=== PATIENT | female | born 1990 | race Asian ===

== ENCOUNTER 2016-11-04 19:00 | Emergency (ER) | payer MEDICAID, OTHER ==
[2016-11-04] MEDS ORDERED: IBUPROFEN 800 MG TABLET PO STA (19:20)
[2016-11-04] MEDS ORDERED: DEXAMETHASONE 10 MG/ML VIAL PO STA (19:20)
--- NOTE | 2016-11-04 19:26 | ED Physician Documentation ---
PD HPI URI - Stated complaint Stated Complaint: FEVER/TROY - Chief complaint Chief Complaint: Heent - History obtained from History obtained from: Patient, Family - History of Present Illness Timing - onset: How many days ago (2) Timing duration: Days (2) Timing details: Gradual onset Pain level max: 5 Pain level now: 5 Associated symptoms: Fever (subjective), Sore throat. No: Ear pain, Rhinorrhea Contributing factors: Sick contact Improves by: Rest, Medication (hydrocodone) Worsened by: Activity Recently seen: Surgery (fractured tooth pulled yesterday, fever and sorethroat were before the surgery) - Additional information Additional information: currently on amoxicillin Review of Systems Constitutional: reports: Fever (subjective) Nose: denies: Rhinorrhea / runny nose, Congestion Throat: reports: Sore throat Respiratory: denies: Cough GI: denies: Abdominal Pain, Vomiting, Diarrhea : denies: Now EGA Skin: denies: Rash Musculoskeletal: denies: Neck pain, Back pain Neurologic: denies: Headache PD PAST MEDICAL HISTORY - Past Medical History Past Medical History: No - Past Surgical History Past Surgical History: No - Present Medications Home Medications: Ambulatory Orders Medication Instructions Recorded Confirmed Amoxicillin 125 mg PO TID 05/08/16 05/08/16 Hydrocodone/Acetaminophen [Vicodin 1 tab PO .FREQ 11/04/16 11/04/16 5-300 mg Tablet] - Allergies Allergies/Adverse Reactions: Allergies Allergy/AdvReac Type Severity Reaction Status Date / Time No Known Drug Allergies Allergy Verified 11/04/16 19:05 - Social History Does the pt smoke?: No Smoking Status: Never smoker Does the pt drink ETOH?: Yes Does the pt have substance abuse?: No - Immunizations Immunizations are current?: Yes PD ED PE NORMAL - Vitals Vital signs reviewed: Yes - General General: Alert and oriented X 3, No acute distress - HEENT HEENT: PERRL, Ears normal, Moist mucous membranes, Dentition benign, Other ( mild posterior oropharyngeal erythema without tonsillar exudates, uvula midline) - Neck Neck: Supple, no meningeal sign, No adenopathy - Cardiac Cardiac: RRR - Respiratory Respiratory: No respiratory distress, Clear bilaterally - Derm Derm: Warm and dry - Neuro Neuro: Alert and oriented X 3 - Psych Psych: Normal mood, Normal affect Results - Vitals Vitals: Vital Signs - 24 hr 11/04/16 11/04/16 19:04 19:32 Temperature 36.6 C Heart Rate 110 H 109 H Respiratory 18 16 Rate Blood Pressure 136/48 H 118/68 O2 Saturation 100 99 Oxygen O2 Source Room air PD MEDICAL DECISION MAKING - ED course Complexity details: considered differential, d/w patient ED course: Patient presents to the emergency department with a sore throat for the past 2 days. Had a dental extraction yesterday. Is currently on amoxicillin. No fever here. Possible that she has strep pharyngitis, but as she is currently on the antibiotic that would be prescribed for strep pharyngitis, will not test for this. Given dexamethasone and Motrin. Will continue supportive care and follow-up with her doctor. No trismus. No evidence of drainable abscess. Extraction site appears clean. Patient and family counseled regarding signs and symptoms for which I believe and urgent re-evaluation would be necessary. Patient with good understanding of and agreement to plan and is comfortable going home at this time This document was made in part using voice recognition software. While efforts are made to proofread this document, sound alike and grammatical errors may occur. Departure - Departure Disposition: 01 Home, Self Care Clinical Impression: Pharyngitis Qualifiers: Pharyngitis/tonsillitis etiology: unspecified etiology Qualified Code(s): J02.9 - Acute pharyngitis, unspecified Condition: Good Instructions: ED Strep Pharyngitis Poss Follow-Up: Julia Wilkins MD [Primary Care Provider] - Within 1 week Comments: Return if you worsen. Continue the amoxicillin at home. Drink plenty of fluids and rest. Discharge Date/Time: 11/04/16 19:33
[2016-11-04] MEDS ORDERED: IBUPROFEN 800 MG TABLET PO ONE (19:27)
[2016-11-04] MEDS ORDERED: CHERRY SYRUP 10 ML UDC PO ONE (19:27)
[2016-11-04] MEDS ORDERED: DEXAMETHASONE 10 MG/ML VIAL ONE (19:27)
[2016-11-04 19:39] VITALS: BP 118/68
== END 2016-11-04 19:33 | disposition home or self-care (01) ==
LOC: ED 19:00
DX: J02.9 Acute pharyngitis, unspecified (principal); Z98.818 Other dental procedure status
CPT/HCPCS: 99283; A9270

== ENCOUNTER 2017-10-02 14:11 | Emergency (ER) | payer OTHER ==
--- NOTE | 2017-10-02 14:30 | ED Physician Documentation ---
History of Present Illness - Stated complaint Stated Complaint: VOMITING/DIZZY - Chief complaint Chief Complaint: General - History obtained from History obtained from: Patient, Family () - History of Present Illness Timing: Today (She has been drinking heavily the last few days, last drink was last night. Today she was getting up to go to the bathroom and felt shortness of breath and some chest heaviness. There is no associated abdominal pain. No hemoptysis, calf swelling, exogenous estrogens or recent travel. No cough.) Review of Systems Constitutional: denies: Fever, Chills Throat: denies: Sore throat Cardiac: reports: Chest pain / pressure. denies: Palpitations, Pedal edema, Calf pain Respiratory: reports: Dyspnea. 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 : None HEENT: None Psych: None Musculoskeletal: None Derm: None - Past Surgical History Past Surgical History: No - Allergies Allergies/Adverse Reactions: Allergies Allergy/AdvReac Type Severity Reaction Status Date / Time No Known Drug Allergies Allergy Verified 10/02/17 14:17 - Social History Does the pt smoke?: No Smoking Status: Never smoker Does the pt drink ETOH?: Yes Does the pt have substance abuse?: No - Family History Family history: reports: Non contributory - Immunizations Immunizations are current?: No - POLST Patient has POLST: No PD ED PE NORMAL - Vitals Vital signs reviewed: Yes - General General: Alert and oriented X 3, Other (Slightly anxious with fine but mild tremor) - HEENT HEENT: PERRL, EOMI - Neck Neck: Supple, no meningeal sign, No bony TTP - Cardiac Cardiac: RRR, No murmur - Respiratory Respiratory: No respiratory distress, Clear bilaterally - Abdomen Abdomen: Normal bowel sounds, Soft, Non tender - Back Back: No CVA TTP, No spinal TTP - Derm Derm: Normal color, Warm and dry - Extremities Extremities: No edema, No calf tenderness / cord - Neuro Neuro: Alert and oriented X 3, Normal speech Eye Opening: Spontaneous Motor: Obeys Commands Verbal: Oriented GCS Score: 15 - Psych Psych: Normal mood, Normal affect Results - Vitals Vitals: Vital Signs - 24 hr 10/02/17 14:13 Temperature 36 C L Heart Rate 68 Respiratory 14 Rate Blood Pressure 147/78 H O2 Saturation 100 Oxygen O2 Source Room air - EKG (time done) 1534 Rate: Rate (enter#) (73) Rhythm: NSR [place]: Normal Intervals: Other (short ID, Long QT) Ischemia: Normal ST segments. No: ST elevation c/w ischemia, ST elevation c/w repol Computer interpretation: Agree with computer - Labs Labs: Laboratory Tests 10/02/17 10/02/17 10/02/17 14:50 14:56 15:05 WBC 11.2 H RBC 5.12 Hgb 14.2 Hct 41.7 MCV 81.5 MCH 27.8 MCHC 34.1 RDW 12.9 Plt Count 298 MPV 6.5 L Neut # 9.8 H Lymph # 1.0 L Caroline # 0.4 Eos # 0.0 Baso # 0.0 Absolute Nucleated RBC 0.01 Nucleated RBC % 0.0 Sodium 133 L Potassium 3.3 L Chloride 98 L Carbon Dioxide 21 Anion Gap 14.0 H BUN 11 Creatinine 0.7 Estimated GFR (MDRD) 100 Glucose 113 H Calcium 9.6 Total Bilirubin 0.9 AST 34 ALT 27 Alkaline Phosphatase 55 Total Protein 8.7 H Albumin 4.9 Globulin 3.8 Albumin/Globulin Ratio 1.3 Lipase 13 L Urine Color LT RED Urine Clarity HAZY Urine pH 7.5 Ur Specific Sweet 1.015 Urine Protein TRACE Urine Glucose (UA) NEGATIVE Urine Ketones 40 H Urine Occult Blood LARGE H Urine Nitrite NEGATIVE Urine Bilirubin NEGATIVE Urine Urobilinogen 0.2 (NORMAL) Ur Leukocyte Esterase TRACE H Urine RBC TNTC H Urine WBC 4-5 Ur Squamous Epith Cells MOD Squamous H Urine Bacteria Rare Ur Microscopic Review INDICATED Urine Culture Comments NOT INDICATED Urine HCG, Qual NEGATIVE PD MEDICAL DECISION MAKING - ED course ED course: I considered pulmonary embolism in this patient. Clinically the pretest probability of pulmonary embolism is less than 15%. I applied to the PERC rules as follows: The patient's age is under 50, heart rate less than 100, oxygen saturation greater than 94%, the patient does not have a history of DVT or PE. Patient has no recent trauma or surgery. The patient has no hemoptysis. The patient is not on exogenous estrogens. The patient does not have clinical signs suggesting DVT. As such the patient ruled out for pulmonary embolism by PERC criteria. It seems that her symptoms may be from alcoholic gastritis or dehydration or some of both. She is feeling a little better after IV fluids and Ativan but still having persistent chest pain which resolved after Toradol. She was advised to take it easy and rest for the rest of the day and avoid alcohol. Departure - Departure Disposition: Home, Self Care Clinical Impression: Dehydration Chest pain Qualifiers: Chest pain type: unspecified Qualified Code(s): R07.9 - Chest pain, unspecified Condition: Good Record reviewed to determine appropriate education?: Yes Instructions: ED Chest Pain Atypical Unkn Cause Comments: Call your doctor to arrange a follow-up appointment, make the next available appointment. In the interim, return anytime if worse or if new symptoms develop. Your blood pressure was elevated today on check into the emergency department. This does not mean that you have hypertension, it is a common phenomenon to come to the emergency department and have elevated blood pressure. I recommend that you see your primary care physician within the week to have it rechecked when you are feeling better.
[2017-10-02] MEDS ORDERED: LORazepam 2 MG/ML VIAL IVP STA (14:32)
[2017-10-02] MEDS ORDERED: SODIUM CHLORIDE 0.9% 1,000 ML IV ONE (14:34)
[2017-10-02 15:03] LABS: BASOPHILS % (AUTO) 0.3 %; EOSINOPHILS % (AUTO) 0.3 %; HGB - HEMOGLOBIN 14.2 g/dL (12.0-16.0); LYMPHOCYTES % (AUTO) 8.9 %; MEAN CORPUSCULAR HEMOGLOBIN 27.8 pg (27.0-31.0); MEAN CORPUSCULAR HGB CONC 34.1 g/dL (32.0-36.0); MEAN CORPUSCULAR VOLUME 81.5 fL (81.0-99.0); MEAN PLATELET VOLUME 6.5 fL (7.9-10.8); MONOCYTES # (AUTO) 0.4 10^3/uL (0.0-1.0); MONOCYTES % (AUTO) 3.2 %; NEUTROPHILS # (AUTO) 9.8 10^3/uL (1.5-6.6); NEUTROPHILS % (AUTO) 87.3 %; PLT - PLATELET COUNT 298 10^3/uL (130-450); RED BLOOD COUNT 5.12 10^6/uL (4.20-5.40); RED CELL DISTRIBUTION WIDTH 12.9 % (12.0-15.0); WHITE BLOOD COUNT 11.2 x10^3/uL (4.8-10.8)
[2017-10-02 15:13] LABS: BILIRUBIN,URINE NEGATIVE (NEGATIVE); GLUCOSE, URINE (UA) NEGATIVE (NEGATIVE); KETONES,URINE (UA) 40 mg/dL (NEGATIVE); LEUKOCYTE ESTERASE, URINE TRACE (NEGATIVE); NITRITE,URINE NEGATIVE (NEGATIVE); OCCULT BLOOD,URINE LARGE (NEGATIVE); PH,URINE 7.5 PH (5.0-7.5); PROTEIN,URINE TRACE mg/dL (NEGATIVE); UROBILINOGEN,URINE 0.2 (NORMAL) E.U./dL (NORMAL)
[2017-10-02 15:14] LABS: CLARITY,URINE HAZY (CLEAR)
[2017-10-02 15:16] LABS: ALBUMIN 4.9 g/dL (3.2-5.5); ALBUMIN/GLOBULIN RATIO 1.3 (1.0-2.2); BILIRUBIN,TOTAL 0.9 mg/dL (0.2-1.0); CALCIUM 9.6 mg/dL (8.5-10.3); CREATININE 0.7 mg/dL (0.4-1.0); TOTAL PROTEIN 8.7 g/dL (6.7-8.2)
[2017-10-02 15:16] LABS: HCG UR QUAL NEGATIVE
[2017-10-02 15:20] LABS: BACTERIA,URINE Rare /HPF (None Seen); RBC,URINE TNTC /HPF (0-5); SQUAMOUS EPITHELIAL CELL,UR MOD Squamous (<= Few)
--- NOTE | 2017-10-02 15:28 | XRAY Preliminary Report ---
Exam: XR CHEST 2 VIEW X-RAY IMPRESSION: No focal lung consolidation or pleural effusions. [facility] SITE ID: [id number]
--- NOTE | 2017-10-02 15:29 | XRAY Report ---
EXAM: CHEST RADIOGRAPHY EXAM DATE: 10/02/2017 03:15 PM. CLINICAL HISTORY: Dyspnea. COMPARISON: 11/21/2009. TECHNIQUE: 2 views. FINDINGS: Lungs/Pleura: No focal lung consolidation. No pleural effusion. No pneumothorax. Mediastinum: Cardiac silhouette size appears normal. Other: None. IMPRESSION: No focal lung consolidation or pleural effusions. [facility] Referring Provider Line: [phone] SITE ID: [id number]
[2017-10-02] MEDS ORDERED: MAGNESIUM SULFATE 2 GRAM 2 GM/50 ML BAG IV ONE (15:38)
[2017-10-02] MEDS ORDERED: KETOROLAC 60 MG/2 ML VIAL IVP STA (15:38)
[2017-10-02] MEDS ORDERED: POTASSIUM BICARB 25 MEQ TABLET PO STA (15:39)
[2017-10-02 16:47] VITALS: BP 130/69
[2017-10-02] MEDS ORDERED: ONDANSETRON ODT 4 MG Prepack 2 TL STA (16:52)
[2017-10-02] MEDS ORDERED: ONDANSETRON 4 MG/2 ML VIAL IVP STA (16:52)
== END 2017-10-02 17:07 | disposition home or self-care (01) ==
LOC: ED 14:11
DX: E86.0 Dehydration (principal); R07.9 Chest pain, unspecified; R03.0 Elevated blood-pressure reading, without diagnosis of hypertension
CPT/HCPCS: 36415; 71046; 80053; 81001; 81025; 83690; 85025; 93005; 96361; 96365; 96375; 99283; 99284; A9270; J2060; 81003; 87086

== ENCOUNTER 2017-10-04 01:24 | Emergency (ER) | payer OTHER ==
--- NOTE | 2017-10-04 03:30 | ED Physician Documentation ---
PD HPI HEADACHE - Stated complaint Stated Complaint: HEADACHE/CP - Chief complaint Chief Complaint: Cardiac - History obtained from History obtained from: Patient - History of Present Illness Timing - onset: Today Timing - onset during: Rest Timing - details: Gradual onset Worst headache ever?: Worst headache ever? Location: Back, Left Quality: Throbbing, Aching Associated symptoms: No: Fever, Stiff neck, Nausea, Vomiting, Weakness, Numbness , Syncope, Seizure, Eye pain, Vision changes Improved by: Other (no ameliorating factors) Worsened by: Other (no exacerbating factors) Recently seen: Clinic, Emergency Dept - Additional information Additional information: T+R 2 days ago from this ED for chest pain after unremarkable w/u. She was seen by PMD earlier today for f/u, no rx nor specific recommendations (suspected diagnosis is costochondritis). She presents at this time c/o headache, left- sided parieto-occipital, since this afternoon Review of Systems Constitutional: denies: Fever, Chills, Sweats Eyes: reports: Reviewed and negative Ears: reports: Reviewed and negative Nose: reports: Reviewed and negative Cardiac: reports: Chest pain / pressure. denies: Palpitations, Pedal edema, Calf pain Respiratory: reports: Reviewed and negative Musculoskeletal: denies: Neck pain, Back pain Neurologic: reports: Headache. 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 : None HEENT: None Psych: None Musculoskeletal: None Derm: None - Past Surgical History Past Surgical History: No - Allergies Allergies/Adverse Reactions: Allergies Allergy/AdvReac Type Severity Reaction Status Date / Time No Known Drug Allergies Allergy Verified 10/04/17 01:43 - Social History Does the pt smoke?: No Smoking Status: Never smoker Does the pt drink ETOH?: Yes Does the pt have substance abuse?: No - Immunizations Immunizations are current?: No - POLST Patient has POLST: No PD ED PE NORMAL - Vitals Vital signs reviewed: Yes - General General: Alert and oriented X 3, No acute distress, Well developed/nourished - HEENT HEENT: Atraumatic, PERRL, EOMI, Moist mucous membranes - Neck Neck: Supple, no meningeal sign - Cardiac Cardiac: RRR, No murmur - Respiratory Respiratory: No respiratory distress, Clear bilaterally - Abdomen Abdomen: Soft, Non tender - Neuro Neuro: Alert and oriented 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, 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, No motor deficit, No sensory deficit, Normal speech Eye Opening: Spontaneous Motor: Obeys Commands Verbal: Oriented GCS Score: 15 Results - Vitals Vitals: Vital Signs - 24 hr 10/04/17 10/04/17 10/04/17 01:40 02:14 03:18 Temperature 36.8 C Heart Rate 77 66 68 Respiratory 17 20 16 Rate Blood Pressure 125/57 L 115/71 106/65 Blood Pressure 115/71 [Left] O2 Saturation 100 100 97 10/04/17 05:38 Temperature Heart Rate 63 Respiratory 16 Rate Blood Pressure 108/62 Blood Pressure [Left] O2 Saturation 100 Oxygen O2 Source Room air - Rads (name of study) CT head Radiology: Prelim report reviewed, See rad report PD MEDICAL DECISION MAKING - ED course Complexity details: reviewed results, re-evaluated patient, considered differential, d/w patient Departure - Departure Disposition: 01 Home, Self Care Clinical Impression: Headache Condition: Good Instructions: ED Cephalgia Unspecified Follow-Up: Julia Wilkins MD [Primary Care Provider] - Within 1 week Discharge Date/Time: 10/04/17 05:40
[2017-10-04] MEDS ORDERED: ACETAMINOPHEN 325 MG TABLET PO STA (03:53)
--- NOTE | 2017-10-04 04:49 | CT Report ---
EXAM: CT HEAD EXAM DATE: 10/04/2017 04:12 AM. CLINICAL HISTORY: Headache COMPARISON: None. TECHNIQUE: Multiaxial CT images were obtained from the foramen magnum to the vertex. Reformats: Coron al. IV contrast: None. In accordance with CT protocol optimization, one or more of the following dose reduction techniques w ere utilized for this exam: automated exposure control, adjustment of mA and/or KV based on patient s ize, or use of iterative reconstructive technique. FINDINGS: Parenchyma: No intraparenchymal hemorrhage. No evidence of mass, midline shift, or CT findings of inf arction. Marmolejo-white differentiation is distinct. Extraaxial Spaces: Normal for age. No subdural or epidural collections identified. Ventricles: Normal in size and position. Sinuses and Orbits: Imaged paranasal sinuses, orbits, and mastoids show no significant abnormality. Bones: No evidence of fracture or calvarial defect. Other: None. IMPRESSION: Normal head CT. [facility] Referring Provider Line: [phone] SITE ID: [id number]
[2017-10-04 05:38] VITALS: BP 108/62
== END 2017-10-04 05:40 | disposition home or self-care (01) ==
LOC: ED 01:24
DX: R51 Headache (principal); R07.9 Chest pain, unspecified
CPT/HCPCS: 70450; 99283; A9270; 93005

== ENCOUNTER 2017-10-05 23:49 | Emergency (ER) | payer OTHER ==
[2017-10-05 23:56] VITALS: BP 131/72
--- NOTE | 2017-10-06 00:16 | ED Physician Documentation ---
History of Present Illness - Stated complaint Stated Complaint: MED REACTION - Chief complaint Chief Complaint: General - History obtained from History obtained from: Patient, Family - History of Present Illness Timing: Today - Additonal information Additional information: Patient is a 27 year old female who was recently diagnosed with GERD who is presenting to the emergency department for possible medication reaction. Patient states that she was started on protonix and ranitidine for GERD by her pcp. Patient stated that after taking her meds today she noticed right sided neck pain, patient thought it could be an allergic reaction. Patient denies any rash, puritis, wheezing or swelling. Review of Systems Constitutional: denies: Fever, Chills Eyes: denies: Loss of vision, Decreased vision Ears: reports: Ear pain Nose: denies: Rhinorrhea / runny nose, Congestion Throat: denies: Sore throat Cardiac: reports: Chest pain / pressure Respiratory: denies: Dyspnea, Cough GI: reports: Abdominal Pain : denies: Dysuria, Frequency Skin: denies: Rash, Lesions Musculoskeletal: reports: Neck pain Neurologic: reports: Headache. 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 HEENT: None Psych: None Musculoskeletal: None Derm: None - Past Surgical History Past Surgical History: No - Present Medications Home Medications: Ambulatory Orders Medication Instructions Recorded Confirmed Albuterol 10/05/17 - Allergies Allergies/Adverse Reactions: Allergies Allergy/AdvReac Type Severity Reaction Status Date / Time No Known Drug Allergies Allergy Verified 10/05/17 23:56 - Social History Does the pt smoke?: No Smoking Status: Never smoker Does the pt drink ETOH?: Yes Does the pt have substance abuse?: No - Immunizations Immunizations are current?: No - POLST Patient has POLST: No PD ED PE NORMAL - General General: Alert and oriented X 3, No acute distress - HEENT HEENT: Atraumatic, Ears normal, Moist mucous membranes - Neck Neck: Supple, no meningeal sign - Cardiac Cardiac: RRR - Respiratory Respiratory: No respiratory distress, Clear bilaterally - Abdomen Abdomen: Soft, Non distended - Derm Derm: Normal color, No rash - Extremities Extremities: No deformity - Neuro Neuro: Alert and oriented X 3, No motor deficit, Normal speech Eye Opening: Spontaneous Results - Vitals Vitals: Vital Signs - 24 hr 10/05/17 23:54 Temperature 36.4 C L Heart Rate 71 Respiratory 15 Rate Blood Pressure 131/72 H O2 Saturation 100 Oxygen O2 Source Room air PD MEDICAL DECISION MAKING - ED course Complexity details: reviewed old records, reviewed results, re-evaluated patient , considered differential, d/w patient, d/w family ED course: Patient was seen and examined at bedside. Patient was well appearing and in no acute distress. A lengthy discussion was had with the patient and family. there was no sign of systemic allergic reaction. Patient required no further work up and was stable for discharge with outpatient follow up. Departure - Departure Disposition: 01 Home, Self Care Clinical Impression: Generalized muscle ache Condition: Good Instructions: ED Neck Back Pain General Follow-Up: Julia Wilkins MD [Primary Care Provider] - As Needed Comments: Your symptoms tonight are unlikely secondary to drug reaction. there is no systemic redness or swelling and it is likely an incidental findings. You should probably take only one of the medications daily and you can take maalox or tums for breakthrough pain. You should avoid acidic, spicey foods. You should eat small meals and don't eat before lying down. You can take tylenol for pain, and occasional benadryl for trouble sleeping. You should follow up with your doctor, and may return to the emergency department at any time for new , worsening or uncontrollable symptoms. Discharge Date/Time: 10/06/17 00:20
== END 2017-10-06 00:20 | disposition home or self-care (01) ==
LOC: ED 23:49
DX: M79.1 Myalgia (principal); K21.9 Gastro-esophageal reflux disease without esophagitis
CPT/HCPCS: 99282

== ENCOUNTER 2017-10-25 08:00 | Outpatient (CLI) | payer OTHER ==
[2017-10-25 13:54] LABS: THYROID STIMULATING HORMONE 1.4 uIU/mL (0.34-5.60)
[2017-10-25 13:56] LABS: FREE T4 (FREE THYROXINE) 0.9 ng/dL (0.58-1.64)
== END 2017-10-25 08:01 ==
LOC: LAB.WCP 08:00
PROVIDERS: ATTEND Family Medicine
DX: E04.9 Nontoxic goiter, unspecified (principal)
CPT/HCPCS: 36415; 84439; 84443; 84481

== ENCOUNTER 2017-10-27 10:31 | Outpatient (CLI) | payer OTHER ==
[2017-10-31 19:26] LABS: ANA SCREEN NEGATIVE (NEGATIVE)
== END 2017-10-27 10:32 | disposition home or self-care (01) ==
LOC: LAB.WCP 10:31
PROVIDERS: ATTEND Family Medicine
DX: I73.01 Raynaud's syndrome with gangrene (principal)
CPT/HCPCS: 36415; 85651; 86038

== ENCOUNTER 2017-11-02 15:32 | Outpatient (CLI) | payer OTHER ==
--- NOTE | 2017-11-02 17:28 | Ultrasound Report ---
THYROID ULTRASOUND: 11/02/2017 CLINICAL INDICATION: Enlarged thyroid. TECHNIQUE: Real-time scanning was performed with telesales representative static images obtained. FINDINGS: The right lobe measures 4.9 x 1.4 x 1.4 cm, and the left lobe measures 4.6 x 1.5 x 1.2 cm. The isthmus measures 3 mm. No adenopathy is seen. IMPRESSION: NORMAL THYROID ULTRASOUND. TD: 11/02/2017 17:27
== END 2017-11-02 15:33 | disposition home or self-care (01) ==
LOC: DI 15:32
PROVIDERS: ATTEND Family Medicine
DX: E04.9 Nontoxic goiter, unspecified (principal)
CPT/HCPCS: 76536

== ENCOUNTER 2018-01-07 10:06 | Outpatient (CLI) | payer OTHER ==
[2018-01-07 10:17] LABS: BASOPHILS % (AUTO) 0.5 %; EOSINOPHILS # (AUTO) 0.1 10^3/uL (0.0-0.7); EOSINOPHILS % (AUTO) 1.9 %; LYMPHOCYTES # (AUTO) 1.8 10^3/uL (1.5-3.5); MEAN CORPUSCULAR HEMOGLOBIN 28.4 pg (27.0-31.0); MEAN CORPUSCULAR HGB CONC 34.3 g/dL (32.0-36.0); MEAN CORPUSCULAR VOLUME 82.8 fL (81.0-99.0); MEAN PLATELET VOLUME 7.1 fL (7.9-10.8); MONOCYTES # (AUTO) 0.3 10^3/uL (0.0-1.0); MONOCYTES % (AUTO) 4.8 %; NEUTROPHILS # (AUTO) 4.5 10^3/uL (1.5-6.6); NEUTROPHILS % (AUTO) 66.8 %; PLT - PLATELET COUNT 216 10^3/uL (130-450); RED BLOOD COUNT 4.94 10^6/uL (4.20-5.40); RED CELL DISTRIBUTION WIDTH 12.9 % (12.0-15.0); WHITE BLOOD COUNT 6.8 x10^3/uL (4.8-10.8)
[2018-01-07 10:32] LABS: ALBUMIN 4.2 g/dL (3.2-5.5); ALBUMIN/GLOBULIN RATIO 1.1 (1.0-2.2); BILIRUBIN,TOTAL 0.5 mg/dL (0.2-1.0); CALCIUM 8.9 mg/dL (8.5-10.3); CREATININE 0.7 mg/dL (0.4-1.0); TOTAL PROTEIN 7.9 g/dL (6.7-8.2)
[2018-01-07 10:38] LABS: HB2 TOTAL 15.7 g/dL; HEMOGLOBIN A1C 0.5 g/dL; HEMOGLOBIN A1C % 5.1 % (4.6-6.2)
== END 2018-01-07 10:07 | disposition home or self-care (01) ==
LOC: LAB 10:06
PROVIDERS: ATTEND Physician Assistant
DX: Z00.00 Encounter for general adult medical examination without abnormal findings (principal)
CPT/HCPCS: 36415; 80053; 83036; 84443; 85025

== ENCOUNTER 2018-06-21 17:21 | Outpatient (CLI) | payer OTHER ==
--- NOTE | 2018-06-22 05:58 | XRAY Report ---
Reason: CHEST WALL PAIN Procedure Date: 06/21/2018 Accession Number: [id number] / [id number] Procedure: XR - Chest 2 View X-Ray CPT Code: 03665 FULL RESULT: EXAM: CHEST RADIOGRAPHY EXAM DATE: 06/21/2018 06:07 PM. CLINICAL HISTORY: CHEST WALL PAIN. COMPARISON: CHEST 2 VIEW 10/02/2017 2:35 PM. TECHNIQUE: 2 views. FINDINGS: Lungs/Pleura: No focal opacities evident. No pleural effusion. No pneumothorax. Normal volumes. Mediastinum: Heart and mediastinal contours are unremarkable. Other: None. IMPRESSION: Stable normal appearance of the chest. [facility]
== END 2018-06-21 17:22 | disposition home or self-care (01) ==
LOC: DI 17:21
PROVIDERS: ATTEND Family Medicine
DX: R07.89 Other chest pain (principal)
CPT/HCPCS: 71046

== ENCOUNTER 2018-09-18 06:25 | Emergency (ER) | payer OTHER ==
[2018-09-18] MEDS ORDERED: DEXAMETHASONE 10 MG/ML VIAL PO STA (07:24)
--- NOTE | 2018-09-18 07:27 | ED Physician Documentation ---
PD HPI URI - Stated complaint Stated Complaint: COUGH/FEVER - Chief complaint Chief Complaint: Resp - History obtained from History obtained from: Patient, Family - History of Present Illness Timing - onset: How many days ago (4) Timing duration: Days (4) Timing details: Gradual onset, Still present Associated symptoms: Fever, Nasal congestion, Rhinorrhea, Productive cough, Chest pain Contributing factors: Sick contact Improves by: Rest, Medication Similar symptoms before: Has not had sx before Recently seen: Not recently seen - Additional information Additional information: 28-year-old female previously well has developed a cough congestion and fever beginning about 4 days ago. She is coughing up yellow-green phlegm continues to have symptoms on day 4 she is now come to the emergency department for evaluation. She does state that this all started after she was using some cleaning supplies without respiratory protection.She does have an inhaler at home she does not feel that she needs to use it. Review of Systems Constitutional: reports: Fever, Chills, Myalgias Eyes: denies: Decreased vision Ears: denies: Ear pain Nose: reports: Rhinorrhea / runny nose, Congestion Throat: reports: Sore throat Cardiac: reports: Chest pain / pressure. denies: Palpitations Respiratory: reports: Dyspnea, Cough GI: reports: Diarrhea. denies: Abdominal Pain, Nausea, Vomiting : denies: Dysuria, Frequency PD PAST MEDICAL HISTORY - Past Medical History Past Medical History: No Cardiovascular: None Respiratory: Asthma Endocrine/Autoimmune: None GI: None ARCHEOLOGIST CLASSICAL: None : None HEENT: None Psych: None Musculoskeletal: None Derm: None - Past Surgical History Past Surgical History: No - Present Medications Home Medications: Ambulatory Orders Medication Instructions Recorded Confirmed No Known Home Medications 09/18/18 09/18/18 - Allergies Allergies/Adverse Reactions: Allergies Allergy/AdvReac Type Severity Reaction Status Date / Time No Known Drug Allergies Allergy Verified 09/18/18 06:41 - Social History Does the pt smoke?: No Smoking Status: Never smoker Does the pt drink ETOH?: Yes Does the pt have substance abuse?: No - Immunizations Immunizations are current?: No - POLST Patient has POLST: No PD ED PE NORMAL - Vitals Vital signs reviewed: Yes (normal ) - General General: Alert and oriented X 3, No acute distress, Well developed/nourished - HEENT HEENT: Atraumatic, PERRL, EOMI, Ears normal, Moist mucous membranes, Pharynx benign, Dentition benign - Neck Neck: Supple, no meningeal sign, No bony TTP - Cardiac Cardiac: RRR, No murmur - Respiratory Respiratory: No respiratory distress, Other (diminished breath sounds bilat) - Abdomen Abdomen: Soft, Non tender - Back Back: No CVA TTP, No spinal TTP - Derm Derm: Normal color, Warm and dry, No rash - Extremities Extremities: No deformity, No edema - Neuro Neuro: Alert and oriented X 3, harness inspector 2-12 intact, No motor deficit, No sensory deficit, Normal speech Eye Opening: Spontaneous Motor: Obeys Commands Verbal: Oriented GCS Score: 15 - Psych Psych: Normal mood, Normal affect Results - Vitals Vitals: Vital Signs - 24 hr 09/18/18 06:35 Temperature 36.9 C Heart Rate 89 Respiratory 18 Rate Blood Pressure 136/60 H O2 Saturation 100 Oxygen O2 Source Room air - Labs Labs: Laboratory Tests 09/18/18 07:25 Influenza A (Rapid) Negative Influenza B (Rapid) Negative - Rads (name of study) chest 2 view Radiology: Prelim report reviewed (Impression: Normal two-view chest radiography.), EMP read indepedently, See rad report PD MEDICAL DECISION MAKING - ED course Complexity details: reviewed results, re-evaluated patient, considered differential, d/w patient, d/w family ED course: 28-year-old female with 4-day history of URI has a negative influenza screen chest x-ray is clear as are the ears sinuses and pharynx. She is coughing up a small amount of yellow phlegm. I discussed with the patient viral URI and treatment with extra fluids and Tylenol and here in the emergency department she is been given 10 mg of dexamethasone. She is off season and her work right now. Departure - Departure Disposition: 01 Home, Self Care Clinical Impression: Upper respiratory tract infection Qualifiers: URI type: unspecified viral URI Qualified Code(s): J06.9 - Acute upper respiratory infection, unspecified Condition: Stable Instructions: ED URI Viral Follow-Up: Charlie Bravo MD [Primary Care Provider] -
--- NOTE | 2018-09-18 08:12 | XRAY Report ---
Reason: cough sputum fever Procedure Date: 09/18/2018 Accession Number: [id number] / [id number] Procedure: XR - Chest 2 View X-Ray CPT Code: 90584 FULL RESULT: EXAM: CHEST RADIOGRAPHY EXAM DATE: 09/18/2018 08:03 AM. CLINICAL HISTORY: Cough sputum fever. COMPARISON: CHEST 2 VIEW 06/21/2018 5:56 PM. TECHNIQUE: 2 views. FINDINGS: Lungs/Pleura: No focal opacities evident. No pleural effusion. No pneumothorax. Normal volumes. Mediastinum: Heart and mediastinal contours are unremarkable. Other: None. IMPRESSION: Normal 2-view chest radiography. RADIA
[2018-09-18 08:29] VITALS: BP 119/69
== END 2018-09-18 08:29 | disposition home or self-care (01) ==
LOC: ED 06:25
DX: J06.9 Acute upper respiratory infection, unspecified (principal)
CPT/HCPCS: 71046; 87275; 87276; 99283

== ENCOUNTER 2018-10-31 17:08 | Emergency (ER) | payer OTHER ==
[2018-10-31 17:35] LABS: BASOPHILS # (AUTO) 0.1 10^3/uL (0.0-0.1); BASOPHILS % (AUTO) 0.6 %; EOSINOPHILS # (AUTO) 0.5 10^3/uL (0.0-0.7); EOSINOPHILS % (AUTO) 4.5 %; HGB - HEMOGLOBIN 14.7 g/dL (12.0-16.0); LYMPHOCYTES # (AUTO) 2.4 10^3/uL (1.5-3.5); LYMPHOCYTES % (AUTO) 22.4 %; MEAN CORPUSCULAR HEMOGLOBIN 27.6 pg (27.0-31.0); MEAN CORPUSCULAR HGB CONC 33.5 g/dL (32.0-36.0); MEAN CORPUSCULAR VOLUME 82.2 fL (81.0-99.0); MONOCYTES # (AUTO) 0.4 10^3/uL (0.0-1.0); MONOCYTES % (AUTO) 3.7 %; NEUTROPHILS # (AUTO) 7.5 10^3/uL (1.5-6.6); NEUTROPHILS % (AUTO) 68.8 %; PLT - PLATELET COUNT 320 10^3/uL (130-450); RED BLOOD COUNT 5.35 10^6/uL (4.20-5.40); RED CELL DISTRIBUTION WIDTH 13.4 % (12.0-15.0); WHITE BLOOD COUNT 10.9 x10^3/uL (4.8-10.8)
--- NOTE | 2018-10-31 17:52 | ED Physician Documentation ---
PD HPI CHEST PAIN - Stated complaint Stated Complaint: CHEST PAIN - Chief complaint Chief Complaint: Cardiac - History obtained from History obtained from: Patient - History of Present Illness Timing - onset: Today (at 5pm, central chest pain up to the throat. Also dizzy x 1 day. Has had this on and off for 2 years, dx clinical MVP. Has echo scheduled tomorrow. Is on metoprolol for same but not helping.) Review of Systems Ten Systems: 10 systems reviewed and negative Constitutional: reports: Reviewed and negative Nose: reports: Reviewed and negative Cardiac: reports: Chest pain / pressure, Palpitations. denies: Pedal edema, Calf pain Respiratory: denies: Dyspnea, Cough PD PAST MEDICAL HISTORY - Past Medical History Cardiovascular: Valve disorder Respiratory: Asthma Endocrine/Autoimmune: None GI: None DOG OR ANIMAL SITTER: None : None HEENT: None Psych: None Musculoskeletal: None Derm: None Other Past Medical History: pt recently diagnosed with mitral valve prolapse, going for an ecco tomorrow (5.8) - Past Surgical History Past Surgical History: No - Present Medications Home Medications: Ambulatory Orders Medication Instructions Recorded Confirmed Ibuprofen [Motrin] 800 mg PO Q8H PRN #30 tablet 10/31/18 Metoprolol Tartrate 12.5 mg PO DAILY 10/31/18 10/31/18 - Allergies Allergies/Adverse Reactions: Allergies Allergy/AdvReac Type Severity Reaction Status Date / Time No Known Drug Allergies Allergy Verified 10/31/18 17:22 - Social History Does the pt smoke?: No Smoking Status: Never smoker Does the pt drink ETOH?: Yes Does the pt have substance abuse?: No - Immunizations Immunizations are current?: No - POLST Patient has POLST: No PD ED PE NORMAL - Vitals Vital signs reviewed: Yes - General General: Alert and oriented X 3, No acute distress - HEENT HEENT: PERRL, EOMI - Neck Neck: Supple, no meningeal sign, No bony TTP - Cardiac Cardiac: RRR, No murmur, Other (tENDER r COSTOCHONDRAL JOINTS) - Respiratory Respiratory: No respiratory distress, Clear bilaterally - Abdomen Abdomen: Non tender - Extremities Extremities: No edema, No calf tenderness / cord - Neuro Neuro: Alert and oriented X 3, Normal speech Results - Vitals Vitals: Vital Signs - 24 hr 05/07/19 05/07/19 05/07/19 17:10 17:23 17:29 Temperature 36.5 C Heart Rate 83 83 95 Respiratory 18 15 16 Rate Blood Pressure 145/65 H 131/68 H 131/68 H O2 Saturation 100 100 99 Oxygen O2 Source Room air - EKG (time done) 1716 Rate: Rate (enter#) (77) Rhythm: NSR [place]: Normal Intervals: Normal [place] QRS: Normal Ischemia: Normal ST segments Computer interpretation: Agree with computer - Labs Labs: Laboratory Tests 10/31/18 10/31/18 10/31/18 17:27 17:27 17:38 WBC 10.9 H RBC 5.35 Hgb 14.7 Hct 44.0 MCV 82.2 MCH 27.6 MCHC 33.5 RDW 13.4 Plt Count 320 MPV 7.0 L Neut # (Auto) 7.5 H Lymph # (Auto) 2.4 [place] # (Auto) 0.4 Eos # (Auto) 0.5 Baso # (Auto) 0.1 Absolute Nucleated RBC 0.01 Nucleated RBC % 0.1 Sodium 136 Potassium 3.6 Chloride 100 L Carbon Dioxide 26 Anion Gap 10.0 BUN 16 Creatinine 0.6 Estimated GFR (MDRD) 118 Glucose 109 H Calcium 9.4 Total Bilirubin 0.5 AST 16 ALT 15 Alkaline Phosphatase 55 Troponin I < 0.04 Total Protein 7.7 Albumin 4.1 Globulin 3.6 Albumin/Globulin Ratio 1.1 Lipase 29 PD MEDICAL DECISION MAKING - ED course ED course: I considered pulmonary embolism in this patient. Clinically the pretest probability of pulmonary embolism is less than 15%. I applied to the PERC rules as follows: The patient's age is under 50, heart rate less than 100, oxygen saturation greater than 94%, the patient does not have a history of DVT or PE. Patient has no recent trauma or surgery. The patient has no hemoptysis. The patient is not on exogenous estrogens. The patient does not have clinical signs suggesting DVT. As such the patient ruled out for pulmonary embolism by PERC criteria. Most consistent with costochondritis. A GI cocktail was trialed and unhelpful. Heart score 0. Departure - Departure Disposition: 01 Home, Self Care Clinical Impression: Atypical chest pain Condition: Good Record reviewed to determine appropriate education?: Yes Instructions: ED Chest Pain Atypical Unkn Cause Prescriptions: Ibuprofen [Motrin] 800 mg PO Q8H PRN #30 tablet PRN Reason: PAIN &/OR FEVER Comments: Keep your appointment for the echocardiogram tomorrow and follow-up with your primary care physician subsequent to that. If the echocardiogram does not show a cause for your recurrent symptoms discuss referral for upper endoscopy with your physician.
[2018-10-31] MEDS ORDERED: LIDOCAINE VISCOUS 2% 15 ML UDC MM STA (17:53)
[2018-10-31] MEDS ORDERED: MAG HYDROX/AL HYDROX/SIMETH 30 ML UDC PO STA (17:53)
[2018-10-31 17:56] LABS: ALBUMIN 4.1 g/dL (3.2-5.5); ALBUMIN/GLOBULIN RATIO 1.1 (1.0-2.2); BILIRUBIN,TOTAL 0.5 mg/dL (0.2-1.0); CALCIUM 9.4 mg/dL (8.5-10.3); CREATININE 0.6 mg/dL (0.4-1.0); TOTAL PROTEIN 7.7 g/dL (6.7-8.2)
--- NOTE | 2018-10-31 18:33 | XRAY Report ---
Reason: chest pain Procedure Date: 10/31/2018 Accession Number: [id number] / [id number] Procedure: XR - Chest 2 View X-Ray CPT Code: 31307 FULL RESULT: EXAM: CHEST RADIOGRAPHY. EXAM DATE: 10/31/2018 05:55 PM. CLINICAL HISTORY: Recurrent chest pain for 2 years, increased today. Recent diagnosis of mitral valve prolapse. COMPARISON: CHEST 2 VIEW 09/18/2018 7:48 AM. TECHNIQUE: 2 views. FINDINGS: Lungs/Pleura: No focal opacities evident. No pleural effusion. No pneumothorax. Normal volumes. Mediastinum: Heart and mediastinal contours are unremarkable. Other: None. IMPRESSION: Normal 2-view chest radiography. RADIA
[2018-10-31 18:57] VITALS: BP 108/66
== END 2018-10-31 18:56 | disposition home or self-care (01) ==
LOC: ED 17:08
DX: R07.89 Other chest pain (principal); I34.1 Nonrheumatic mitral (valve) prolapse
CPT/HCPCS: 36415; 71046; 80053; 83690; 84484; 85025; 93005; 99283; 99284; A9270

== ENCOUNTER 2018-11-01 11:33 | Outpatient (CLI) | payer OTHER | END 2018-11-01 11:34 | disposition home or self-care (01) | LOC: DI 11:33 | PROVIDERS: ATTEND Physician Assistant | DX: I34.1 Nonrheumatic mitral (valve) prolapse (principal) | CPT/HCPCS: 93306 ==

== ENCOUNTER 2019-05-27 21:01 | Day surgery (SDC) | payer MEDICAID, OTHER ==
[2019-05-27 21:28] LABS: BILIRUBIN,URINE NEGATIVE (NEGATIVE); GLUCOSE, URINE (UA) 250 mg/dL (NEGATIVE); KETONES,URINE (UA) NEGATIVE (NEGATIVE); LEUKOCYTE ESTERASE, URINE SMALL (NEGATIVE); NITRITE,URINE NEGATIVE (NEGATIVE); OCCULT BLOOD,URINE TRACE-INTA (NEGATIVE); PH,URINE 5.5 PH (5.0-7.5); PROTEIN,URINE NEGATIVE (NEGATIVE); UROBILINOGEN,URINE 0.2 (NORMAL) E.U./dL (NORMAL)
[2019-05-27 21:29] LABS: HCG UR QUAL POSITIVE
[2019-05-27 21:30] LABS: BASOPHILS % (AUTO) 0.1 %; EOSINOPHILS # (AUTO) 0.1 10^3/uL (0.0-0.7); EOSINOPHILS % (AUTO) 0.3 %; HGB - HEMOGLOBIN 13.5 g/dL (12.0-16.0); LYMPHOCYTES # (AUTO) 0.7 10^3/uL (1.5-3.5); LYMPHOCYTES % (AUTO) 4.7 %; MEAN CORPUSCULAR HEMOGLOBIN 28.4 pg (27.0-31.0); MEAN CORPUSCULAR HGB CONC 34.1 g/dL (32.0-36.0); MEAN CORPUSCULAR VOLUME 83.2 fL (81.0-99.0); MEAN PLATELET VOLUME 8.1 fL (7.9-10.8); MONOCYTES # (AUTO) 0.5 10^3/uL (0.0-1.0); MONOCYTES % (AUTO) 3.3 %; NEUTROPHILS # (AUTO) 13.4 10^3/uL (1.5-6.6); PLT - PLATELET COUNT 224 10^3/uL (130-450); RED BLOOD COUNT 4.76 10^6/uL (4.20-5.40); WHITE BLOOD COUNT 14.7 x10^3/uL (4.8-10.8)
[2019-05-27 21:31] LABS: CLARITY,URINE HAZY (CLEAR)
[2019-05-27 21:38] LABS: RBC,URINE 0-5 /HPF (0-5); SQUAMOUS EPITHELIAL CELL,UR MANY Squamous (<= Few)
[2019-05-27 21:39] LABS: BACTERIA,URINE Rare /HPF (None Seen)
--- NOTE | 2019-05-27 21:40 | ED Physician Documentation ---
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 No: Diarrhea, Constipation, Dysuria, Vaginal bleeding Similar symptoms before: Has not had sx before Recently seen: Not recently seen - Additional information Additional information: c/o abdominal pain with nausea and vomiting. 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 She is approximately 8 weeks , has had US in this 05/18 in outpatient setting in [place]. Review of Systems Constitutional: reports: Fever. denies: Chills, Sweats Eyes: reports: Reviewed and negative Ears: reports: Reviewed and negative Nose: reports: Reviewed and negative Throat: reports: Reviewed and negative Cardiac: reports: Reviewed and negative Respiratory: reports: Reviewed and negative GI: reports: Abdominal Pain, Nausea, Vomiting. denies: Constipation, Diarrhea : reports: Now EGA (8 weeks) Musculoskeletal: reports: Reviewed and negative Neurologic: reports: Reviewed and negative PD PAST MEDICAL HISTORY - Past Medical History Cardiovascular: Valve disorder Respiratory: Asthma Endocrine/Autoimmune: None GI: None DIRECTOR HEDIS: None : None HEENT: None Psych: None Musculoskeletal: None Derm: None - Past Surgical History Past Surgical History: No - Present Medications Home Medications: Ambulatory Orders Medication Instructions Recorded Confirmed Pnv No.95/Ferrous Fum/Folic AC 05/27/19 [ Vitamins Tablet] Ondansetron Odt [Zofran] 4 mg TL Q6H PRN #10 tablet 05/28/19 oxyCODONE [Roxicodone] 5 mg PO Q4H PRN #14 tablet 05/28/19 - Allergies Allergies/Adverse Reactions: Allergies Allergy/AdvReac Type Severity Reaction Status Date / Time No Known Drug Allergies Allergy Verified 05/27/19 21:12 - Social History Does the pt smoke?: No Smoking Status: Never smoker Does the pt drink ETOH?: Yes Does the pt have substance abuse?: No - Immunizations Immunizations are current?: No - POLST Patient has POLST: No PD ED PE NORMAL - Vitals Vital signs reviewed: Yes - General General: Alert and oriented X 3, No acute distress, Well developed/nourished - HEENT HEENT: Moist mucous membranes - Neck Neck: Supple, no meningeal sign - Cardiac Cardiac: No murmur - Respiratory Respiratory: No respiratory distress, Clear bilaterally - Abdomen Abdomen: Soft, Non distended, Other (tender across lower abdomen, RLQ > LLQ) - Back Back: No CVA TTP - Derm Derm: Normal color, Warm and dry - Extremities Extremities: No edema PD ED PE EXPANDED - Cardiac Cardiac: Tachy, Regular Rhythm Results - Vitals Vitals: Vital Signs - 24 hr 05/27/19 05/28/19 05/28/19 21:09 00:34 01:40 Temperature 36.8 C 37.3 C 37.0 C Heart Rate 122 H 107 H 118 H Respiratory 18 16 16 Rate Blood Pressure 155/64 H 125/65 123/66 O2 Saturation 98 98 99 05/28/19 05/28/19 05/28/19 03:00 04:10 05:49 Temperature Heart Rate 116 H 108 H 113 H Respiratory 16 15 16 Rate Blood Pressure 125/65 115/59 L 118/64 O2 Saturation 97 97 98 05/28/19 05/28/19 05/28/19 06:03 07:00 07:05 Temperature 37.1 C 37.9 C H 38.1 C H Heart Rate 112 H 125 H 122 H Respiratory 16 16 16 Rate Blood Pressure 118/64 100/69 116/73 O2 Saturation 99 100 100 05/28/19 05/28/19 05/28/19 07:10 07:15 07:20 Temperature 38.4 C H 38.4 C H 38.4 C H Heart Rate 117 H 113 H 115 H Respiratory 26 H 15 24 Rate Blood Pressure 125/73 119/55 L 118/56 L O2 Saturation 100 100 100 05/28/19 05/28/19 05/28/19 07:25 07:30 07:35 Temperature 38.5 C H 38.5 C H 38.3 C H Heart Rate 109 H 111 H 112 H Respiratory 18 21 17 Rate Blood Pressure 117/58 L 114/54 L 113/64 O2 Saturation 99 96 98 12/08/1505/28/19 05/28/19 07:41 08:01 08:56 Temperature 38.1 C H 38.1 C H 37.2 C Heart Rate 107 H 109 H 96 Respiratory 21 20 23 Rate Blood Pressure 121/52 L 111/53 L 111/52 L O2 Saturation 98 96 96 Oxygen O2 Source Room air - Labs Labs: Laboratory Tests 05/27/19 05/27/19 05/27/19 21:15 21:15 21:26 WBC RBC Hgb Hct MCV MCH MCHC RDW Plt Count MPV Neut # (Auto) Lymph # (Auto) [place] # (Auto) Eos # (Auto) Baso # (Auto) Absolute Nucleated RBC Nucleated RBC % Sodium 130 L Potassium 3.3 L Chloride 96 L Carbon Dioxide 23 Anion Gap 11.0 BUN 9 Creatinine 0.6 Estimated GFR (MDRD) 118 Glucose 133 H Calcium 9.0 Total Bilirubin 0.5 AST 17 ALT 16 Alkaline Phosphatase 38 L Total Protein 8.9 H Albumin 4.5 Globulin 4.4 H Albumin/Globulin Ratio 1.0 Lipase 37 Urine Color LIGHT YELLOW Urine Clarity HAZY Urine pH 5.5 Ur Specific [place] 1.025 1.025 Urine Protein NEGATIVE Urine Glucose (UA) 250 H Urine Ketones NEGATIVE Urine Occult Blood TRACE-INTA Urine Nitrite NEGATIVE Urine Bilirubin NEGATIVE Urine Urobilinogen 0.2 (NORMAL) Ur Leukocyte Esterase SMALL H Urine RBC 0-5 Urine WBC 6-10 H Ur Squamous Epith Cells MANY Squamous H Urine Bacteria Rare Ur Microscopic Review INDICATED Urine Culture Comments NOT INDICATED Urine HCG, Qual POSITIVE 05/27/19 21:26 WBC 14.7 H RBC 4.76 Hgb 13.5 Hct 39.6 MCV 83.2 MCH 28.4 MCHC 34.1 RDW 12.0 Plt Count 224 MPV 8.1 Neut # (Auto) 13.4 H Lymph # (Auto) 0.7 L [place] # (Auto) 0.5 Eos # (Auto) 0.1 Baso # (Auto) 0.0 Absolute Nucleated RBC 0.00 Nucleated RBC % 0.0 Sodium Potassium Chloride Carbon Dioxide Anion Gap BUN Creatinine Estimated GFR (MDRD) Glucose Calcium Total Bilirubin AST ALT Alkaline Phosphatase Total Protein Albumin Globulin Albumin/Globulin Ratio Lipase Urine Color Urine Clarity Urine pH Ur Specific [place] Urine Protein Urine Glucose (UA) Urine Ketones Urine Occult Blood Urine Nitrite Urine Bilirubin Urine Urobilinogen Ur Leukocyte Esterase Urine RBC Urine WBC Ur Squamous Epith Cells Urine Bacteria Ur Microscopic Review Urine Culture Comments Urine HCG, Qual - Rads (name of study) RLQ US Radiology: Prelim report reviewed, See rad report ob pelvic US Radiology: Prelim report reviewed, See rad report PD MEDICAL DECISION MAKING - ED course Complexity details: reviewed results, re-evaluated patient, considered differential, d/w patient ED course: 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 OB pelvic US is reassuring, with viable IUP, small fibroid. The RLQ US, however, is s/o appendicitis. I subsequently discussed case and results with both Dr. Todd and Dr. Mcmahon, and patient taken to OR for appendectomy. Departure - Departure Disposition: ED Place in Observation Clinical Impression: complicated by acute appendicitis Condition: Good Discharge Date/Time: 05/28/19 06:10
[2019-05-27 21:48] LABS: ALBUMIN 4.5 g/dL (3.2-5.5); BILIRUBIN,TOTAL 0.5 mg/dL (0.2-1.0); CREATININE 0.6 mg/dL (0.4-1.0); TOTAL PROTEIN 8.9 g/dL (6.7-8.2)
--- NOTE | 2019-05-28 00:41 | Ultrasound Report ---
Reason: , abdominal pain, 8 weeks Procedure Date: 05/27/2019 Accession Number: [id number] / [id number] Procedure: US - OB First Trimester CPT Code: Final Report FULL RESULT: EXAM: FIRST TRIMESTER OBSTETRIC ULTRASOUND (Less than 11 weeks) EXAM DATE: 05/27/2019 11:07 PM. CLINICAL HISTORY: , abdominal pain, 8 weeks . LMP: 03/30/2019. COMPARISONS: None. TECHNIQUE: Transabdominal and transvaginal ultrasound examination with static image documentation. CLINICAL DATES: EGA 8 weeks 2 days with LINDA 01/04/2020 based on LMP. ASSESSMENT: Gestational Sac: Single intrauterine. Mean gestational sac diameter: 29 mm = 8 weeks 0 days. Embryo: CRL (crown-rump length) 20 mm = 8 weeks 4 days. Cardiac activity: 189 beats per minute. Yolk sac: 5 mm. Amniotic fluid: Not accurately assessed at this gestational age. Early placenta: Not visible at this gestational age. Other: No perigestational fluid collection demonstrated. MATERNAL STRUCTURES: Uterus: Retroverted. Anterior subserosal leiomyoma, measuring 4.4 x 3.3 x 3.0 cm. Cervix: Closed. Right Ovary/Adnexa: The ovary measures 2.5 x 2.4 x 1.8 cm, volume 6 cc. Unremarkable. Left Ovary/Adnexa: The ovary measures 3.0 x 1.7 x 1.5 cm, volume 4 cc. Unremarkable. Free Fluid: None. Other: None. IMPRESSION: 1. Single viable intrauterine at EGA 8 weeks 4 days with LINDA 01/02/2020 based on crown-rump length, which is concordant with clinical dates. 2. Assigned dating is LINDA 01/04/2020 based on LMP. 3. Anterior subserosal leiomyoma, measuring 4.4 cm. 4. No perigestational hemorrhage. Normal ovaries. RADIA
--- NOTE | 2019-05-28 01:07 | Ultrasound Report ---
Reason: RLQ pain in Procedure Date: 05/28/2019 Accession Number: [id number] / [id number] Procedure: US - Abdomen Limited CPT Code: Final Report FULL RESULT: EXAM: Limited RIGHT LOWER QUADRANT ultrasound EXAM DATE: 05/28/2019 12:25 AM. CLINICAL HISTORY: RLQ pain in . COMPARISON: None. TECHNIQUE: Real-time scanning was performed of the right lower quadrant with static images obtained. FINDINGS: APPENDIX: Partially seen. The origination from the cecum could not be seen. Diameter measurement: 12 x 9 mm Compressible: No Compressed Appendiceal Diameter, AP measurement: 9 mm (abnormal >6 mm) Appendicolith Seen: No Hyperemia: Yes COMPRESSION TOLERATED: Moderate ASSOCIATED FINDINGS: Lymph Nodes Seen: No Free Fluid/Complex Fluid Seen: No Thickened Bowel Wall Seen: No Other: None. IMPRESSION: Partially visualized appendix including the tip, is dilated up to 12 mm, and can only be compressed to 9 mm. There is hyperemia in the appendiceal wall. No periappendiceal fluid. Overall findings are consistent with acute appendicitis. RADIA
[2019-05-28] MEDS ORDERED: ROCURONIUM 50 MG/5 ML VIAL IVP ONE (02:46)
[2019-05-28] MEDS ORDERED: PROPOFOL 200 MG/20 ML VIAL IVP ONE (02:46)
[2019-05-28] MEDS ORDERED: LACTATED RINGERS 1,000 ML IV STA (02:56)
[2019-05-28] MEDS ORDERED: SODIUM CHLORIDE 0.9% 1,000 ML IV SCH (03:13)
[2019-05-28] MEDS ORDERED: SODIUM CHLORIDE 0.9% 1,000 ML IV ONE (03:14)
[2019-05-28] MEDS ORDERED: BUPIVACAINE 0.5% PF 30 ML VIAL ONE (05:33)
[2019-05-28] MEDS ORDERED: LIDOCAINE 1%-EPI 1:100000 20 ML MDV ONE (05:33)
--- NOTE | 2019-05-28 05:40 | ANESTHESIA ---
Pre-Anesthesia VS, & Labs - Diagnosis Appendicitis - Procedure Lap appy Vital Signs: Temp Pulse Resp BP Pulse Ox 37.0 C 108 H 15 115/59 L 97 05/28/19 01:40 05/28/19 04:10 05/28/19 04:10 05/28/19 04:10 05/28/19 04:10 Height 5 ft Weight (kg) 61.235 kg Body Mass Index 26.4 - NPO >8 hours - Is Patient ?: Yes - Lab Results Current Lab Results: Laboratory Tests 05/27/19 21:26: WBC 14.7 H, RBC 4.76, Hgb 13.5, Hct 39.6, MCV 83.2, MCH 28.4, MCHC 34.1, RDW 12.0, Plt Count 224, MPV 8.1, Neut # (Auto) 13.4 H, Lymph # (Auto) 0.7 L, [place] # (Auto) 0.5, Eos # (Auto) 0.1, Baso # (Auto) 0.0, Absolute Nucleated RBC 0.00, Nucleated RBC % 0.0 05/27/19 21:26: Sodium 130 L, Potassium 3.3 L, Chloride 96 L, Carbon Dioxide 23, Anion Gap 11.0, BUN 9, Creatinine 0.6, Estimated GFR (MDRD) 118, Glucose 133 H, Calcium 9.0, Total Bilirubin 0.5, AST 17, ALT 16, Alkaline Phosphatase 38 L, Total Protein 8.9 H, Albumin 4.5, Globulin 4.4 H, Albumin/Globulin Ratio 1.0, Lipase 37 Lab results reviewed: Yes Fish Bones: 05/27/19 21:26 05/27/19 21:26 Home Medications and Allergies Home Medications: Ambulatory Orders Pnv No.95/Ferrous Fum/Folic AC [ Vitamins Tablet] 05/27/19 Active Medications Sodium Chloride (Normal Saline 0.9%) 1,000 mls @ 75 mls/hr IV .[id number] ONE Stop: 05/28/19 16:33 Last Admin: 05/28/19 03:15 Dose: 75 mls/hr Pnv No.95/Ferrous Fum/Folic AC [ Vitamins Tablet] 05/27/19 Allergies/Adverse Reactions: Allergies Allergy/AdvReac Type Severity Reaction Status Date / Time No Known Drug Allergies Allergy Verified 05/27/19 21:12 Anes History & Medical History - Anesthetic History Anesthesia Complications: reports: No previous complications Family history of Anesthesia Complications: Denies Family history of Malignant Hyperthermia: Denies - Medical History Cardiovascular: reports: Valve disorder Pulmonary: reports: Asthma Gastrointestinal: reports: None Urinary: reports: None Neuro: reports: None Musculoskeletal: reports: None Endocrine/Autoimmune: reports: None Blood Disorders: reports: None Skin: reports: None Smoking Status: Never smoker Psychosocial: reports: No issues indicated - Surgical History Gynecologic: Other (MILES) Exam General: Alert, Oriented x3, Cooperative Dental: WNL Mouth Openin Fingerbreadth Neck Mobility: Normal Mallampati classification: II Thyromental Distance: greater than 6 cm Respiratory: Lungs clear Cardiovascular: Regular rate Cognitive Status: Within normal limits Plan Anesthesia Type: General Consent for Procedure(s) Verified and Reviewed: Yes Code Status: Attempt Resuscitation ASA classification: 2-Mild systemic disease Is this case an emergency?: Yes
[2019-05-28] MEDS ORDERED: PIPERACILLIN/TAZOBACTAM 3.375 GM in SODIUM CHLORIDE 0.9% MINIBAG 100 ML IV STA (06:03)
--- NOTE | 2019-05-28 06:12 | CONSULTATION NOTE ---
DATE OF SERVICE: 05/28/2019 Physician: Alma Mcmahon MD CONSULTING TEAM: Emergency Room REASON FOR CONSULT: Probable appendicitis. CHIEF COMPLAINT: Abdominal pain. HISTORY OF PRESENT ILLNESS: The patient is a 28-year-old G3, P2-0-0-2 at 8 weeks by ultrasound, who came to the ER complaining of right lower quadrant pain. On 05/27/2019 she woke up feeling poorly. Then, around 3 p.m. she had a fever of 101 degrees. Throughout the day, she had progressive right lo wer quadrant pain that at point was 10/10 in severity. It felt just plain painful. It was associate d by a sensation of uterine fullness. She has been vomiting throughout the first trimester, and she has had more emesis today than usual. No diarrhea. She does have some appetite. REVIEW OF SYMPTOMS: No cough, no vaginal bleeding, no dysuria, no hematuria, no vaginal discharge. PAST MEDICAL HISTORY: Negative. PAST SURGICAL HISTORY: Negative. SOCIAL HISTORY: No tobacco, alcohol, or drug use. 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 No current IUD use. OBSTETRIC HISTORY: Two prior uncomplicated pregnancies. These babies were born at term and we are b orn vaginally at term. FAMILY HISTORY: No anesthesia complications. PHYSICAL EXAMINATION: Exam upon admission to the emergency room VITAL SIGNS: Temperature was 98.2, with a heart rate of 122, blood pressure 155/64, respirations 18, oxygen saturation 98% on room air. Her maximum temperature here has been 99.2. Currently, she is 9 8.6, with a heart rate of 118, and a blood pressure of 123/66. GENERAL: She appears tired, but wakes easily. Otherwise, she does not appear to be in distress. NEUROLOGIC: She is neurologically intact. PSYCHIATRIC: Normal affect and grooming. HEART: Regular rate and rhythm. No clicks, rubs, gallops, or murmurs. LUNGS: LUNGS: Clear to auscultation bilaterally. ABDOMEN: Soft and mildly tender in the right lower quadrant. With the ER physician earlier, she had been more significantly tender. Rebound is present in the right lower quadrant only. STUDIES: OB ultrasound revealed a single, living IUP at 8 weeks 2 days with a 4 cm subserosal fibroi d. There were no adnexal masses and no free fluid. There was no subchorionic hemorrhage. Abdominal Ultrasound: Appendiceal diameter was 12 x 9 mm with a compressed diameter of 9 mm. There was no co mplex fluid. There was hyperemia and appendiceal wall. LABORATORY DATA: White count 14.7 with a left shift. CMP with a sodium of 130, potassium of 3.3, an d a glucose of 133, otherwise unremarkable. test was positive. Urine was contaminated. ASSESSMENT AND PLAN: A 28-year-old G3, P2-0-0-2 at 8 weeks 5 days by ultrasound with findings sugges tive of acute appendicitis based on her right lower quadrant pain, fever, leukocytosis with a left sh ift, and abnormal ultrasound with hyperemic appendix with abnormal compression. While it would be id eal to avoid exposure to substances or medications in the first trimester, appendectomy is the standa rd of care for appendicitis during and [TIME: 09:27] have not been seen in women who h ave undergone surgery during the first trimester of . I have discussed with Dr. Barahona, the general surgeon, and we will plan to go to the operating room for her appendectomy. For VTE prophyl axis, she will have SCDs and CHARU hose. We will avoid benzodiazepines. We will keep intraabdominal p ressure between 10 and 15, preferably closer to 10. We will plan for visualized insertion of trocars . TD: 05/28/2019 03:16
--- NOTE | 2019-05-28 06:14 | HISTORY & PHYSICAL EXAMINATION ---
HPI - Admitted From Admitted from: ED - History Obtained From Records Reviewed: RN notes reviewed History obtained from: Patient, Family Exam limitations: No limitations - History of Present Illness Severity at the worst: reports: Moderate Pain Quality: reports: Aching Context-Pain started w/: reports: Rest Timing: reports: Gradual onset Duration: reports: Hours: Improved with: reports: Rest Worsened by: reports: Exertion, Movement Associated symptoms: reports: Nausea PMH/PSH - Past Medical History Cardiovascular: positive: Valve disorder Respiratory: positive: Asthma Neuro: positive: None Endocrine/Autoimmune: positive: None GI: positive: None TILE SETTER: positive: None : positive: None HEENT: positive: None Psych: positive: None Musculoskeletal: positive: None Derm: positive: None MRSA Hx?: No - Past Surgical History /TILE SETTER: positive: Other (MILES) Social & Family Hx - Social History Does the pt smoke?: No Smoking Status: Never smoker Does the pt drink ETOH?: No Does the pt have substance abuse?: No - POLST Patient has POLST: No Meds/Allgy - Home Medications Home Medications: Ambulatory Orders Medication Instructions Recorded Confirmed Pnv No.95/Ferrous Fum/Folic AC 05/27/19 [ Vitamins Tablet] - Allergies Allergies/Adverse Reactions: Allergies Allergy/AdvReac Type Severity Reaction Status Date / Time No Known Drug Allergies Allergy Verified 05/27/19 21:12 Review of Systems - Constitutional Constitutional: reports: Fever, Chills - Eyes Eyes: denies: Pain, Irritation, Amaurosis, Blurred vision - Ears, Nose & Throat Ears, Nose & Throat: denies: Tinnitus, Vertigo - Cardiovascular Cariovascular: denies: Palpitations, Chest pain, Edema - Respiratory Respiratory: denies: Cough, Wheezing - Gastrointestinal Gastrointestinal: reports: Abdominal pain, Nausea - Genitourinary Genitourinary: denies: Dysuria, Frequency - Musculoskeletal Musculoskeletal: denies: Muscle pain, Back pain - Integumentary Integumentary: denies: Rash, Pruritis - Neurological Neurological: denies: General weakness, Focal weakness - Psychiatric Psychiatric: denies: Depression - Endocrine Endocrine: denies: Polyuria, Polydypsia - Hematologic/Lymphatic Hematologic/Lymphatic: denies: Anemia, Bruising - All Other Systems All Other Systems: reports: Reviewed and negative Exam - Vital Signs Reviewed Vital Signs: Yes Vital Signs: Vital Signs x48h Temp Pulse Resp BP Pulse Ox 05/28/19 06:03 37.1 C 112 H 16 118/64 99 05/28/19 05:49 113 H 16 118/64 98 05/28/19 04:10 108 H 15 115/59 L 97 05/28/19 03:00 116 H 16 125/65 97 05/28/19 01:40 37.0 C 118 H 16 123/66 99 05/28/19 00:34 37.3 C 107 H 16 125/65 98 - Physical Exam General Appearance: positive: No acute distress, Alert Eyes Bilateral: positive: Normal inspection, PERRL, EOMI ENT: positive: ENT inspection nml, Pharynx nml, No signs of dehydration Neck: positive: Nml inspection, Thyroid nml, No JVD, Trachea midline. negative: Thyromegaly Respiratory: positive: Chest non-tender, No respiratory distress, Breath sounds nml Cardiovascular: positive: Regular rate & rhythm, No murmur Peripheral Pulses: positive: 2+ Abdomen: positive: Tenderness, Guarding, Other (tender to palpation in the right lower quadrant, voluntary guarding) Back: negative: CVA tenderness (R), CVA tenderness (L) Skin: positive: Color nml, No rash Extremities: positive: Non-tender, Full ROM, Nml appearance Neurologic/Psychiatric: positive: Oriented x3, CN's nml (2-12) Results - Lab Results Fish Bones: 05/27/19 21:26 05/27/19 21:26 Other Lab Results: Lab Results x24hrs 05/27/19 05/27/19 05/27/19 Range/Units 21:26 21:26 21:15 WBC 14.7 H (4.8-10.8) x10^3/uL RBC 4.76 (4.20-5.40) 10^6/uL Hgb 13.5 (12.0-16.0) g/dL Hct 39.6 (37.0-47.0) % MCV 83.2 (81.0-99.0) fL MCH 28.4 (27.0-31.0) pg MCHC 34.1 (32.0-36.0) g/dL RDW 12.0 (12.0-15.0) % Plt Count 224 (130-450) 10^3/uL MPV 8.1 (7.9-10.8) fL Neut # (Auto) 13.4 H (1.5-6.6) 10^3/uL Lymph # (Auto) 0.7 L (1.5-3.5) 10^3/uL [place] # (Auto) 0.5 (0.0-1.0) 10^3/uL Eos # (Auto) 0.1 (0.0-0.7) 10^3/uL Baso # (Auto) 0.0 (0.0-0.1) 10^3/uL Absolute Nucleated RBC 0.00 x10^3/uL Nucleated RBC % 0.0 /100WBC Sodium 130 L (135-145) mmol/L Potassium 3.3 L (3.5-5.0) mmol/L Chloride 96 L (101-111) mmol/L Carbon Dioxide 23 (21-32) mmol/L Anion Gap 11.0 (6-13) BUN 9 (6-20) mg/dL Creatinine 0.6 (0.4-1.0) mg/dL Estimated GFR (MDRD) 118 (>89) Glucose 133 H (70-100) mg/dL Calcium 9.0 (8.5-10.3) mg/dL Total Bilirubin 0.5 (0.2-1.0) mg/dL AST 17 (10-42) IU/L ALT 16 (10-60) IU/L Alkaline Phosphatase 38 L (42-121) IU/L Total Protein 8.9 H (6.7-8.2) g/dL Albumin 4.5 (3.2-5.5) g/dL Globulin 4.4 H (2.1-4.2) g/dL Albumin/Globulin Ratio 1.0 (1.0-2.2) Lipase 37 (22-51) U/L Urine Color Urine Clarity (CLEAR) Urine pH (5.0-7.5) PH Ur Specific [place] 1.025 (1.002-1.030) Urine Protein (NEGATIVE) mg/dL Urine Glucose (UA) (NEGATIVE) mg/dL Urine Ketones (NEGATIVE) mg/dL Urine Occult Blood (NEGATIVE) Urine Nitrite (NEGATIVE) Urine Bilirubin (NEGATIVE) Urine Urobilinogen (NORMAL) E.U./dL Ur Leukocyte Esterase (NEGATIVE) Urine RBC (0-5) /HPF Urine WBC (0-5) /HPF Ur Squamous Epith Cells (<= Few) Urine Bacteria (None Seen) /HPF Ur Microscopic Review Urine Culture Comments Urine HCG, Qual POSITIVE 05/27/19 Range/Units 21:15 WBC (4.8-10.8) x10^3/uL RBC (4.20-5.40) 10^6/uL Hgb (12.0-16.0) g/dL Hct (37.0-47.0) % MCV (81.0-99.0) fL MCH (27.0-31.0) pg MCHC (32.0-36.0) g/dL RDW (12.0-15.0) % Plt Count (130-450) 10^3/uL MPV (7.9-10.8) fL Neut # (Auto) (1.5-6.6) 10^3/uL Lymph # (Auto) (1.5-3.5) 10^3/uL [place] # (Auto) (0.0-1.0) 10^3/uL Eos # (Auto) (0.0-0.7) 10^3/uL Baso # (Auto) (0.0-0.1) 10^3/uL Absolute Nucleated RBC x10^3/uL Nucleated RBC % /100WBC Sodium (135-145) mmol/L Potassium (3.5-5.0) mmol/L Chloride (101-111) mmol/L Carbon Dioxide (21-32) mmol/L Anion Gap (6-13) BUN (6-20) mg/dL Creatinine (0.4-1.0) mg/dL Estimated GFR (MDRD) (>89) Glucose (70-100) mg/dL Calcium (8.5-10.3) mg/dL Total Bilirubin (0.2-1.0) mg/dL AST (10-42) IU/L ALT (10-60) IU/L Alkaline Phosphatase (42-121) IU/L Total Protein (6.7-8.2) g/dL Albumin (3.2-5.5) g/dL Globulin (2.1-4.2) g/dL Albumin/Globulin Ratio (1.0-2.2) Lipase (22-51) U/L Urine Color LIGHT YELLOW Urine Clarity HAZY (CLEAR) Urine pH 5.5 (5.0-7.5) PH Ur Specific [place] 1.025 (1.002-1.030) Urine Protein NEGATIVE (NEGATIVE) mg/dL Urine Glucose (UA) 250 H (NEGATIVE) mg/dL Urine Ketones NEGATIVE (NEGATIVE) mg/dL Urine Occult Blood TRACE-INTA (NEGATIVE) Urine Nitrite NEGATIVE (NEGATIVE) Urine Bilirubin NEGATIVE (NEGATIVE) Urine Urobilinogen 0.2 (NORMAL) (NORMAL) E.U./dL Ur Leukocyte Esterase SMALL H (NEGATIVE) Urine RBC 0-5 (0-5) /HPF Urine WBC 6-10 H (0-5) /HPF Ur Squamous Epith Cells MANY Squamous H (<= Few) Urine Bacteria Rare (None Seen) /HPF Ur Microscopic Review INDICATED Urine Culture Comments NOT INDICATED Urine HCG, Qual - Diagnostic Imaging Results Diagnostic Imaging Results: positive: Final report reviewed Diagnostic Imaging Results Comments: Due to , evaluated with ultrasound. Appendix appears dilated and only partially compressible consistent with acute appendicitis Impression/Plan - Problem List Problem List: Early acute appendicitis in the setting of a healthy 28 year old lady with iup of 8 weeks gestation. She has been seen by the band master magnetic resonance technologist and all alternatives have been considered, including antibiotic treatment only. Considering the risks and benefits, the patient has expressed a desire to complete appendectomy this morning.
[2019-05-28] MEDS ORDERED: BUPIVACAINE 0.5% PF 30 ML VIAL SUBQ ONE (06:49)
[2019-05-28] MEDS ORDERED: LIDOCAINE 1%-EPI 1:100000 30 ML MDV SUBQ ONE (06:49)
[2019-05-28] MEDS ORDERED: SUGAMMADEX 200 MG/2 ML VIAL IVP ONE (06:50)
--- NOTE | 2019-05-28 06:57 | OPERATIVE REPORT ---
Operative Report - General Procedure Date: 05/28/19 Planned Procedure: Laparoscopic Appendectomy Pre-Op Diagnosis: Acute appendicitis Procedure Performed: Laparoscopic Appendectomy Post Op Diagnosis: Acute appendicitis - Procedure Note Primary Surgeon: Perez Anesthesia Provider: DAISY Garcia Anesthesia Technique: General ET tube, Local Pathology: Appendix in formalin to pathology Estimated Blood Loss (mL): 10 Findings: Acute appendicitis without evidence of rupture Complications: None apparent - Other Other Information/Narrative: After obtaining informed consent, the patient is brought to the operating room placed in the supine position on the operating table. Following successful induction of general endotracheal anesthesia, appropriate padding of all bony prominences, and placement appropriate monitors, the abdomen is prepped and draped in the standard surgical fashion. A timeout was held per scope protocol. All elements of the surgical safety checklist were followed before, during, and after the procedure. Following infiltration with local anesthetic to create a field block, an incision was created inferior to the umbilicus and carried down through the skin and subcutaneous tissue to reveal the fascia below. 2-0 Vicryl retention sutures were placed on either side of the midline and the abdomen was entered under 15 blade scalpel. A 10 mm blunt [place] balloon trocar was placed in the abdominal cavity and it was insufflated to 15 mmHg pressure. The patient was placed in Trendelenburg position with left side rotated toward the floor. A 5 mm trocar was placed in the right upper quadrant again after infiltration with local anesthetic and a second 5 mm trocar placed midway between the umbilicus and the pubis again after infiltration with local anesthetic. We were careful to be sure we did not disturb the uterus and placement during placement of any of the trochars. The colon was rotated medially revealing a grossly inflamed appendix. There was no evidence of purulence or rupture. A window was created in the mesentery of the appendix and it was liberated from its attachment to the cecum using a stapling device. A second load was used to divide the mesoappendix. The appendix was then placed in the pouch and removed by the umbilical port. The abdomen was checked for hemostasis. It was irrigated with warm saline solution and aspirated free of all fluid and particulate matter. The trochars were then removed under direct vision. The abdomen was desufflated. The umbilical incision was closed with Vicryl suture and Monocryl stitches were placed in all of the skin incisions. All sponge, needle, and instrument counts were correct at the conclusion of the case. The patient was allowed to awaken from anesthesia without difficulty and taken to the postanesthesia care unit in good condition.
[2019-05-28] MEDS ORDERED: oxyCODONE 5 MG TABLET PO PRN (06:58)
[2019-05-28] MEDS ORDERED: ONDANSETRON 4 MG/2 ML VIAL IVP PRN (06:58)
[2019-05-28] MEDS ORDERED: ACETAMINOPHEN 325 MG TABLET PO PRN (06:58)
[2019-05-28] MEDS ORDERED: HYDROmorphone 0.5 MG/0.5 ML SYRINGE IVP PRN (06:58)
[2019-05-28] MEDS ORDERED: LACTATED RINGERS 1,000 ML IV ONE ×2 (07:05→07:15)
[2019-05-28] MEDS ORDERED: ACETAMINOPHEN 1,000 MG/100 ML 100 ML IV ONE (07:10)
[2019-05-28] MEDS ORDERED: fentaNYL 100 MCG/2 ML VIAL ONE (07:27)
[2019-05-28] MEDS ORDERED: oxyCODONE 5 MG TABLET ONE (07:58)
[2019-05-28 08:58] VITALS: BP 111/52
== END 2019-05-28 02:46 | disposition home or self-care (01) ==
LOC: ED 21:01 → SDS 05-28 02:45
PROVIDERS: ATTEND Obstetrics & Gynecology
PROC: 0DTJ4ZZ Resection of Appendix, Percutaneous Endoscopic Approach (ICD-10-PCS; principal; 2019-05-28 06:00)
DX: O99.611 Diseases of the digestive system complicating pregnancy, first trimester (principal); K35.80 Unspecified acute appendicitis; O99.411 Diseases of the circulatory system complicating pregnancy, first trimester; I38 Endocarditis, valve unspecified; O99.511 Diseases of the respiratory system complicating pregnancy, first trimester; J45.909 Unspecified asthma, uncomplicated; Z3A.08 8 weeks gestation of pregnancy; O34.11 Maternal care for benign tumor of corpus uteri, first trimester; D25.2 Subserosal leiomyoma of uterus
CPT/HCPCS: 36415; 44970; 76705; 76801; 76817; 80053; 81001; 81025; 83690; 85025; 99284; 99285; A9270; J0131; J7120; 81003; 87086

== ENCOUNTER 2019-08-31 08:12 | Outpatient (CLI) | payer MEDICAID | END 2019-08-31 08:13 | disposition short-term general hospital (02) | LOC: EMS 08:12 | PROVIDERS: ATTEND Surgery | DX: O99.89 Other specified diseases and conditions complicating pregnancy, childbirth and the puerperium (principal) | CPT/HCPCS: A0425; A0429 ==

== ENCOUNTER 2020-02-07 16:09 | Outpatient (CLI) | payer MEDICAID ==
[2020-02-07 18:29] LABS: BASOPHILS % (AUTO) 0.5 %; EOSINOPHILS # (AUTO) 0.8 10^3/uL (0.0-0.7); EOSINOPHILS % (AUTO) 9.5 %; HGB - HEMOGLOBIN 13.7 g/dL (12.0-16.0); LYMPHOCYTES # (AUTO) 2.5 10^3/uL (1.5-3.5); MEAN CORPUSCULAR HEMOGLOBIN 26.9 pg (27.0-31.0); MEAN CORPUSCULAR HGB CONC 32.8 g/dL (32.0-36.0); MEAN PLATELET VOLUME 8.5 fL (7.9-10.8); MONOCYTES # (AUTO) 0.3 10^3/uL (0.0-1.0); MONOCYTES % (AUTO) 4.2 %; NEUTROPHILS # (AUTO) 4.3 10^3/uL (1.5-6.6); NEUTROPHILS % (AUTO) 54.5 %; PLT - PLATELET COUNT 290 10^3/uL (130-450); RED CELL DISTRIBUTION WIDTH 13.6 % (12.0-15.0); WHITE BLOOD COUNT 7.9 x10^3/uL (4.8-10.8)
[2020-02-07 18:56] LABS: ALBUMIN 4.7 g/dL (3.2-5.5); ALBUMIN/GLOBULIN RATIO 1.3 (1.0-2.2); BILIRUBIN,TOTAL 0.4 mg/dL (0.2-1.0); CALCIUM 9.7 mg/dL (8.5-10.3); CREATININE 0.7 mg/dL (0.4-1.0); TOTAL PROTEIN 8.2 g/dL (6.7-8.2)
== END 2020-02-07 23:59 | disposition home or self-care (01) ==
LOC: LAB.WCP 16:09
PROVIDERS: ATTEND Family Medicine
DX: R42 Dizziness and giddiness (principal)
CPT/HCPCS: 36415; 80053; 84443; 85025

== ENCOUNTER 2020-02-18 14:28 | Outpatient (CLI) | payer MEDICAID ==
--- NOTE | 2020-02-18 15:36 | Ultrasound Report ---
PROCEDURE: Abdomen Limited INDICATIONS: ELEVATED LFT'S TECHNIQUE: Real-time focused scanning was performed of the abdomen, with image documentation. COMPARISON: Prior abdominal ultrasound, limited, 05/27/2019 FINDINGS: The liver echotexture is diffusely hyperechoic consistent with fatty infiltration in the l iver is mildly enlarged at almost 18 cm. No intrahepatic biliary distention or mass is found. Gallbla dder appears normal. There is a 3 mm polyp at the mucosal margin of the gallbladder. Common bile duct measures 6-7 mm. The pancreas where well visualized appears normal. Right kidney is normal in size a nd free of hydronephrosis or nephrolithiasis IMPRESSION: Prominent fatty infiltration throughout the liver which is mildly enlarged. There is no sign of liver mass or biliary distention and no gallstones are identified within the gallbladder lumen. Reviewed by: Lang Ingram MD on 02/18/2020 3:35 PM PDT Approved by: Lang Ingram MD on 02/18/2020 3:35 PM PDT Station ID: [id number]
== END 2020-02-18 14:29 | disposition home or self-care (01) ==
LOC: DI 14:28
PROVIDERS: ATTEND Family Medicine
DX: K76.0 Fatty (change of) liver, not elsewhere classified (principal)
CPT/HCPCS: 76705

== ENCOUNTER 2020-04-09 08:00 | Outpatient (CLI) | payer MEDICAID ==
[2020-04-09 18:37] LABS: ALBUMIN 4.9 g/dL (3.2-5.5); ALBUMIN/GLOBULIN RATIO 1.4 (1.0-2.2); BILIRUBIN,TOTAL 0.4 mg/dL (0.2-1.0); CALCIUM 10.1 mg/dL (8.5-10.3); CREATININE 0.7 mg/dL (0.4-1.0); TOTAL PROTEIN 8.5 g/dL (6.7-8.2)
== END 2020-04-09 23:59 | disposition home or self-care (01) ==
LOC: LAB.WCP 08:00
PROVIDERS: ATTEND Physician Assistant Medical
DX: R74.8 Abnormal levels of other serum enzymes (principal)
CPT/HCPCS: 36415; 80053

== ENCOUNTER 2020-04-09 14:18 | Outpatient (CLI) | payer MEDICAID ==
--- NOTE | 2020-04-09 17:00 | XRAY Report ---
PROCEDURE: Knee 3 View BILAT INDICATIONS: KNEE PAIN,BILATERAL TECHNIQUE: 3 views of the bilateral knee(s) were acquired. COMPARISON: None. FINDINGS: Bones: No fractures or dislocations. No suspicious bony lesions. Soft tissues: Bilateral effusions. No suspicious soft tissue calcifications. IMPRESSION: No acute osseous abnormality. Minimal bilateral effusions. Reviewed by: Shala Siddiqui MD on 04/09/2020 4:59 PM PDT Approved by: Shala Siddiqui MD on 04/09/2020 4:59 PM PDT Station ID: [id number]
== END 2020-04-09 14:19 | disposition home or self-care (01) ==
LOC: DI 14:18
PROVIDERS: ATTEND Physician Assistant Medical
DX: M25.561 Pain in right knee (principal); M25.562 Pain in left knee; M25.461 Effusion, right knee; M25.462 Effusion, left knee

== ENCOUNTER 2020-08-18 08:00 | Outpatient (CLI) | payer MEDICAID ==
[2020-08-18 19:17] LABS: BILIRUBIN,URINE NEGATIVE (NEGATIVE); GLUCOSE, URINE (UA) NEGATIVE (NEGATIVE); KETONES,URINE (UA) NEGATIVE (NEGATIVE); LEUKOCYTE ESTERASE, URINE TRACE (NEGATIVE); NITRITE,URINE NEGATIVE (NEGATIVE); OCCULT BLOOD,URINE NEGATIVE (NEGATIVE); PROTEIN,URINE NEGATIVE (NEGATIVE); UROBILINOGEN,URINE 0.2 (NORMAL) E.U./dL (NORMAL)
[2020-08-18 19:23] LABS: CLARITY,URINE HAZY (CLEAR)
[2020-08-18 19:34] LABS: BACTERIA,URINE None Seen /HPF (None Seen); RBC,URINE 0-5 /HPF (0-5); SQUAMOUS EPITHELIAL CELL,UR FEW Squamous (<= Few)
== END 2020-08-18 23:59 | disposition home or self-care (01) ==
LOC: LAB.WCP 08:00
PROVIDERS: ATTEND Physician Assistant Medical
DX: R10.2 Pelvic and perineal pain (principal)
CPT/HCPCS: 81001; 87086

== ENCOUNTER 2020-08-26 16:16 | Outpatient (CLI) | payer MEDICAID ==
--- NOTE | 2020-08-27 09:04 | Ultrasound Report ---
PROCEDURE: Pelvic w/Transvaginal INDICATIONS: UTERINE FIBROIDS TECHNIQUE: Real-time scanning was performed of the pelvic organs, with image documentation. Additional endovagi nal scanning was necessary due to incomplete visualization of the adnexal and endometrial structures by transabdominal scanning. COMPARISON: 05/27/2019. FINDINGS: No pathologic free abdominal or pelvic fluid. A nonspecific echogenic focus seen in the cul-de-sac Uterus: Retroverted uterus is enlarged in size at 9.5 x 11.6 x 5.2 cm. The endometrium measures 7 mm in combined thickness. A presumed uterine fibroid in the left anterior subserosal region measuring 3.0 x 2.3 x 2.9 cm previously 4.4 x 3.3 x 3.0 cm. Ovaries: Right ovary measures 3.8 x 3.7 x 2.7 cm and there is a complex cystic lesion with low-level internal echoes measuring 2.6 x 2.5 x 1.6 cm. Left ovary measures 2.9 x 2.4 x 2.8 cm and is unremark able. IMPRESSION: Uterine fibroid Complex right ovarian cystic lesion, possibly involuting or hemorrhagic cyst although technically ind eterminate. This could be followed up in 6-12 weeks, to assess for resolution as clinically warranted . Reviewed by: Gwyn Acevedo MD on 08/27/2020 9:03 AM PST Approved by: Gwyn Acevedo MD on 08/27/2020 9:03 AM PST Station ID: [id number]
== END 2020-08-26 16:17 | disposition home or self-care (01) ==
LOC: DI 16:16
PROVIDERS: ATTEND Physician Assistant Medical
DX: D25.9 Leiomyoma of uterus, unspecified (principal); N83.201 Unspecified ovarian cyst, right side

== ENCOUNTER 2020-12-19 08:00 | Outpatient (CLI) | payer MEDICAID ==
[2020-12-19 12:02] LABS: BASOPHILS % (AUTO) 0.5 %; EOSINOPHILS # (AUTO) 0.4 10^3/uL (0.0-0.7); EOSINOPHILS % (AUTO) 5.4 %; HCT - HEMATOCRIT 40.2 % (37.0-47.0); HGB - HEMOGLOBIN 13.7 g/dL (12.0-16.0); LYMPHOCYTES # (AUTO) 2.1 10^3/uL (1.5-3.5); LYMPHOCYTES % (AUTO) 26.3 %; MEAN CORPUSCULAR HEMOGLOBIN 28.8 pg (27.0-31.0); MEAN CORPUSCULAR HGB CONC 34.1 g/dL (32.0-36.0); MEAN CORPUSCULAR VOLUME 84.6 fL (81.0-99.0); MEAN PLATELET VOLUME 8.9 fL (7.9-10.8); MONOCYTES # (AUTO) 0.4 10^3/uL (0.0-1.0); MONOCYTES % (AUTO) 4.6 %; NEUTROPHILS # (AUTO) 5.1 10^3/uL (1.5-6.6); PLT - PLATELET COUNT 265 10^3/uL (130-450); RED BLOOD COUNT 4.75 10^6/uL (4.20-5.40); RED CELL DISTRIBUTION WIDTH 12.4 % (12.0-15.0); WHITE BLOOD COUNT 8.1 x10^3/uL (4.8-10.8)
[2020-12-19 12:18] LABS: ALBUMIN 4.3 g/dL (3.2-5.5); ALBUMIN/GLOBULIN RATIO 1.3 (1.0-2.2); ALKALINE PHOSPHATASE 50 IU/L (42-121); ALT ALANINE AMINOTRANSFERASE 16 IU/L (10-60); AST ASPARTATE AMINOTRANSFERASE 18 IU/L (10-42); BILIRUBIN,TOTAL 0.7 mg/dL (0.2-1.0); BUN - BLOOD UREA NITROGEN 11 mg/dL (6-20); CALCIUM 8.8 mg/dL (8.5-10.3); CARBON DIOXIDE - CO2 21 mmol/L (21-32); CHLORIDE 106 mmol/L (101-111); CHOL/HDL RATIO 3.5 (<4.4); CHOLESTEROL 174 mg/dL; CREATININE 0.6 mg/dL (0.4-1.0); GFR - MDRD 117 (>89); GLUCOSE 103 mg/dL (70-100); HDL CHOLESTEROL 50 mg/dL; LDL CHOLESTEROL,CALCULATED 104 mg/dL; LDL/HDL RATIO 2.1 (<4.4); POTASSIUM 3.7 mmol/L (3.5-5.0); SODIUM 136 mmol/L (135-145); TOTAL PROTEIN 7.5 g/dL (6.7-8.2); TRIGLYCERIDES 99 mg/dL; VLDL CHOLESTEROL 20 mg/dL
[2020-12-19 12:26] LABS: THYROID STIMULATING HORMONE 0.87 uIU/mL (0.34-5.60)
== END 2020-12-19 23:59 | disposition home or self-care (01) ==
LOC: LAB.WCP 08:00
PROVIDERS: ATTEND Physician Assistant Medical
DX: Z00.00 Encounter for general adult medical examination without abnormal findings (principal)
CPT/HCPCS: 36415; 80053; 80061; 83721; 84443; 85025

== ENCOUNTER 2022-04-17 23:45 | Emergency (ER) | payer MEDICAID ==
[2022-04-18 00:59] LABS: BASOPHILS % (AUTO) 0.4 %; EOSINOPHILS % (AUTO) 7.1 %; HGB - HEMOGLOBIN 13.3 g/dL (12.0-16.0); LYMPHOCYTES # (AUTO) 2.1 10^3/uL (1.5-3.5); MEAN CORPUSCULAR HEMOGLOBIN 27.5 pg (27.0-31.0); MEAN CORPUSCULAR HGB CONC 33.3 g/dL (32.0-36.0); MEAN CORPUSCULAR VOLUME 82.6 fL (81.0-99.0); MEAN PLATELET VOLUME 8.1 fL (7.9-10.8); MONOCYTES # (AUTO) 0.4 10^3/uL (0.0-1.0); MONOCYTES % (AUTO) 4.6 %; NEUTROPHILS # (AUTO) 4.8 10^3/uL (1.5-6.6); NEUTROPHILS % (AUTO) 60.6 %; PLT - PLATELET COUNT 227 10^3/uL (130-450); RED BLOOD COUNT 4.84 10^6/uL (4.20-5.40); RED CELL DISTRIBUTION WIDTH 13.1 % (12.0-15.0); WHITE BLOOD COUNT 7.9 x10^3/uL (4.8-10.8)
[2022-04-18 01:00] LABS: EOSINOPHILS # (AUTO) 0.6 10^3/uL (0.0-0.7)
[2022-04-18 01:08] LABS: CALCIUM 9.9 mg/dL (8.5-10.3); CREATININE 0.6 mg/dL (0.4-1.0); POTASSIUM 3.7 mmol/L (3.5-5.0)
--- NOTE | 2022-04-18 01:33 | ED Physician Documentation ---
PD HPI FEMALE - Stated complaint Stated Complaint: S/P / - Chief complaint Chief Complaint: General - History obtained from History obtained from: Patient - History of Present Illness Timing - onset: Yesterday Timing - details: Abrupt onset, Waxing and waning Pain level max: 0 Pain level max: 0 Associated symptoms: Vaginal bleeding. No: Fever, Abdominal pain, Back pain, Pelvic pain, Vaginal pain, Vaginal discharge, Dysuria OB-BONE CHAR OPERATOR History: Prior C section - Additional information Additional information: patient had 6 weeks ago, presents due to vaginal bleeding since yesterday. Denies fever, denies any pain including vaginal/pelvic/abdominal pain. No blood clots noted. Review of Systems Constitutional: reports: Reviewed and negative Cardiac: reports: Reviewed and negative Respiratory: reports: Reviewed and negative GI: reports: Reviewed and negative : reports: Dysuria, Vaginal bleeding. denies: Frequency PD PAST MEDICAL HISTORY - Past Medical History Cardiovascular: Valve disorder Respiratory: Asthma Neuro: None Endocrine/Autoimmune: None GI: None BONE CHAR OPERATOR: None : None HEENT: None Psych: None Musculoskeletal: None Derm: None - Past Surgical History Past Surgical History: No /BONE CHAR OPERATOR: Other (MILES) - Present Medications Home Medications: Ambulatory Orders Medication Instructions Recorded Confirmed Pnv No.95/Ferrous Fum/Folic AC 1 tab PO DAILY 05/27/19 04/18/22 [ Vitamins Tablet] Ondansetron Odt [Zofran] 4 mg TL Q6H PRN #10 tablet 05/28/19 04/18/22 oxyCODONE [Roxicodone] 5 mg PO Q4H PRN #14 tablet 05/28/19 04/18/22 - Allergies Allergies/Adverse Reactions: Allergies Allergy/AdvReac Type Severity Reaction Status Date / Time No Known Drug Allergies Allergy Verified 04/17/22 23:57 - Social History Does the pt smoke?: No Smoking Status: Never smoker Does the pt drink ETOH?: Yes Does the pt have substance abuse?: No - Immunizations Immunizations are current?: No - POLST Patient has POLST: No PD ED PE NORMAL - Vitals Vital signs reviewed: Yes - General General: Alert and oriented X 3, No acute distress, Well developed/nourished - Cardiac Cardiac: RRR, No murmur - Respiratory Respiratory: No respiratory distress, Clear bilaterally - Abdomen Abdomen: Normal bowel sounds, Soft, Non tender, Non distended - Back Back: No CVA TTP - Derm Derm: Normal color, Warm and dry PD ED PE EXPANDED - Female Female : Normal external, Vaginal Bleeding (there is small amount of blood in vaginal vault; the blood is removed with gauze and swabs; cervix well visualized and there is no active bleeding and there is no discharge), Security Officer Supervisor present (ED RN Haile). No: Dilated cervix, Tissue present Results - Vitals Vitals: Oxygen O2 Source Room air - Labs Labs: Laboratory Tests 04/18/22 04/18/22 00:53 00:53 WBC 7.9 RBC 4.84 Hgb 13.3 Hct 40.0 MCV 82.6 MCH 27.5 MCHC 33.3 RDW 13.1 Plt Count 227 MPV 8.1 Neut # (Auto) 4.8 Lymph # (Auto) 2.1 [place] # (Auto) 0.4 Eos # (Auto) 0.6 Baso # (Auto) 0.0 Absolute Nucleated RBC 0.00 Nucleated RBC % 0.0 Sodium 139 Potassium 3.7 Chloride 103 Carbon Dioxide 24 Anion Gap 12.0 BUN 15 Creatinine 0.6 Estimated GFR (MDRD) 116 Glucose 160 H Calcium 9.9 PD MEDICAL DECISION MAKING - ED course Complexity details: reviewed results, re-evaluated patient, considered differential, d/w patient ED course: presents with vaginal bleeding since yesterday, more than she has had with previous mestrual periods. This is the first vaginal bleeding she has had since 6 weeks ago. No fever and denies pain. She has normal CBC, BMP, and no active bleeding on pelvic exam. No further testing indicated at this time. Results reviewed with patient, return precautions discussed. Departure - Departure Disposition: 01 Home, Self Care Clinical Impression: Vaginal bleeding Condition: Good Instructions: ED Bleed Irregular Vaginal Follow-Up: Kari Mims PA-C [Primary Care Provider] - Comments: There are no concerning findings on tonight's tests. Your blood counts are normal including your red blood cell levels. There is no active bleeding noted on pelvic exam. You should expect the bleeding to continue for the next few days, but if it becomes worse or associated with fever , pelvic pain, lightheadedness, shortness of breath, consider returning to the emergency department. Contact your medical authorization specialist tomorrow (Tuesday) to arrange for next available appointment Discharge Date/Time: 04/18/22 03:34
[2022-04-18 03:24] VITALS: BP 114/59
== END 2022-04-18 03:34 | disposition home or self-care (01) ==
LOC: ED 23:45
DX: O72.1 Other immediate postpartum hemorrhage (principal); O90.89 Other complications of the puerperium, not elsewhere classified; R30.0 Dysuria
CPT/HCPCS: 36415; 80048; 85025; 99282; 99283

== ENCOUNTER 2022-05-04 11:50 | Outpatient (CLI) | payer MEDICAID ==
[2022-05-04 18:30] LABS: BASOPHILS % (AUTO) 0.6 %; EOSINOPHILS # (AUTO) 0.5 10^3/uL (0.0-0.7); EOSINOPHILS % (AUTO) 7.5 %; HGB - HEMOGLOBIN 13.7 g/dL (12.0-16.0); LYMPHOCYTES # (AUTO) 1.7 10^3/uL (1.5-3.5); MEAN CORPUSCULAR HEMOGLOBIN 27.2 pg (27.0-31.0); MEAN CORPUSCULAR HGB CONC 32.6 g/dL (32.0-36.0); MEAN CORPUSCULAR VOLUME 83.5 fL (81.0-99.0); MEAN PLATELET VOLUME 8.5 fL (7.9-10.8); MONOCYTES # (AUTO) 0.3 10^3/uL (0.0-1.0); MONOCYTES % (AUTO) 4.2 %; NEUTROPHILS # (AUTO) 4.1 10^3/uL (1.5-6.6); NEUTROPHILS % (AUTO) 61.4 %; PLT - PLATELET COUNT 309 10^3/uL (130-450); RED BLOOD COUNT 5.03 10^6/uL (4.20-5.40); RED CELL DISTRIBUTION WIDTH 13.3 % (12.0-15.0); WHITE BLOOD COUNT 6.7 x10^3/uL (4.8-10.8)
[2022-05-04 18:50] LABS: ALBUMIN 4.6 g/dL (3.2-5.5); ALBUMIN/GLOBULIN RATIO 1.4 (1.0-2.2); BILIRUBIN,TOTAL 0.6 mg/dL (0.2-1.0); CALCIUM 9.3 mg/dL (8.5-10.3); CREATININE 0.6 mg/dL (0.4-1.0); POTASSIUM 3.8 mmol/L (3.5-5.0); TOTAL PROTEIN 7.9 g/dL (6.7-8.2)
== END 2022-05-04 11:51 | disposition home or self-care (01) ==
LOC: LAB.N 11:50
PROVIDERS: ATTEND Nurse Practitioner
DX: R11.0 Nausea (principal)
CPT/HCPCS: 36415; 80053; 85025

== ENCOUNTER 2022-05-13 17:00 | Outpatient (CLI) | payer MEDICAID | END 2022-05-13 23:59 | disposition home or self-care (01) | LOC: LAB.R 17:00 | PROVIDERS: ATTEND Physician Assistant Medical | DX: L08.9 Local infection of the skin and subcutaneous tissue, unspecified (principal) | CPT/HCPCS: 87070; 87205 ==

== ENCOUNTER 2022-05-19 08:32 | Outpatient (CLI) | payer MEDICAID ==
[2022-05-19 12:55] LABS: ESTIMATED AVERAGE GLUCOSE 108 mg/dL (70-100); HEMOGLOBIN A1c% 5.4 % (4.27-6.07)
[2022-05-19 13:18] LABS: ALBUMIN 4.7 g/dL (3.2-5.5); ALBUMIN/GLOBULIN RATIO 1.3 (1.0-2.2); BILIRUBIN,TOTAL 0.7 mg/dL (0.2-1.0); CREATININE 0.7 mg/dL (0.4-1.0); TOTAL PROTEIN 8.2 g/dL (6.7-8.2)
== END 2022-05-19 08:33 | disposition home or self-care (01) ==
LOC: LAB.N 08:32
PROVIDERS: ATTEND Physician Assistant Medical
DX: O24.419 Gestational diabetes mellitus in pregnancy, unspecified control (principal)
CPT/HCPCS: 36415; 80053; 83036

== ENCOUNTER 2022-09-16 22:23 | Outpatient (CLI) | payer MEDICAID ==
--- NOTE | 2022-09-17 09:33 | Ultrasound Report ---
PROCEDURE: Pelvic w/Transvaginal INDICATIONS: [place]OR[place] TECHNIQUE: Real-time scanning was performed of the pelvic organs, with image documentation. Additional endovagi nal scanning was necessary due to incomplete visualization of the adnexal and endometrial structures by transabdominal scanning. COMPARISON: None. FINDINGS: Uterus: Uterus is retroverted and normal in size at 7.8 x 3.9 x 5.4 cm. The myometrium is heterogen eous. The endometrium measures 5 mm in combined thickness. Subserosal fibroid along the posterior m argin of the mid uterine segment measuring 2.8 cm. Ovaries: The right ovary measures 2.9 x 2.5 x 3.4 cm, with a calculated ovarian volume of 13 cc. Th e left ovary measures 2.8 x 2.2 x 3 cm, with a calculated ovarian volume of 10 cc. The ovaries have a normal sonographic appearance. Less than 12 follicles can be seen in each ovary. No adnexal ayesha s are seen. Other: No pathologic free abdominal or pelvic fluid. IMPRESSION: No acute findings explain the patient's menorrhagia. Reviewed by: Mj Chung on 09/17/2022 9:31 AM PDT Approved by: Mj Chung on 09/17/2022 9:31 AM PDT Station ID: [id number]
== END 2022-09-16 22:24 | disposition home or self-care (01) ==
LOC: DI 22:23
PROVIDERS: ATTEND Family Medicine
DX: N92.1 Excessive and frequent menstruation with irregular cycle (principal)

== ENCOUNTER 2023-05-28 13:52 | Outpatient (CLI) | payer MEDICAID ==
[2023-05-28 19:36] LABS: BASOPHILS % (AUTO) 0.5 %; EOSINOPHILS # (AUTO) 0.5 10^3/uL (0.0-0.7); EOSINOPHILS % (AUTO) 6.5 %; HCT - HEMATOCRIT 43.9 % (37.0-47.0); HGB - HEMOGLOBIN 13.9 g/dL (12.0-16.0); LYMPHOCYTES # (AUTO) 1.9 10^3/uL (1.5-3.5); LYMPHOCYTES % (AUTO) 24.8 %; MEAN CORPUSCULAR HEMOGLOBIN 27.5 pg (27.0-31.0); MEAN CORPUSCULAR HGB CONC 31.7 g/dL (32.0-36.0); MEAN CORPUSCULAR VOLUME 86.8 fL (81.0-99.0); MEAN PLATELET VOLUME 8.8 fL (7.9-10.8); MONOCYTES # (AUTO) 0.3 10^3/uL (0.0-1.0); MONOCYTES % (AUTO) 3.3 %; NEUTROPHILS # (AUTO) 4.9 10^3/uL (1.5-6.6); NEUTROPHILS % (AUTO) 64.8 %; PLT - PLATELET COUNT 291 10^3/uL (130-450); RED BLOOD COUNT 5.06 10^6/uL (4.20-5.40); RED CELL DISTRIBUTION WIDTH 12.5 % (12.0-15.0); WHITE BLOOD COUNT 7.6 x10^3/uL (4.8-10.8)
[2023-05-28 19:50] LABS: THYROID STIMULATING HORMONE 0.52 uIU/mL (0.34-5.60)
[2023-05-28 19:51] LABS: BUN - BLOOD UREA NITROGEN 12 mg/dL (6-20); CALCIUM 9.5 mg/dL (8.5-10.3); CARBON DIOXIDE - CO2 26 mmol/L (21-32); CHLORIDE 106 mmol/L (101-111); CHOL/HDL RATIO 3.5 (<4.4); CHOLESTEROL 183 mg/dL; CREATININE 0.5 mg/dL (0.6-1.3); GFR - MDRD 142 (>89); GLUCOSE 93 mg/dL (74-104); HDL CHOLESTEROL 53 mg/dL; LDL CHOLESTEROL,CALCULATED 108 mg/dL; POTASSIUM 4.1 mmol/L (3.5-4.5); SODIUM 139 mmol/L (135-145); TRIGLYCERIDES 111 mg/dL (48-352); VLDL CHOLESTEROL 22 mg/dL
[2023-05-28 19:57] LABS: FERRITIN 115.1 ng/mL (11.0-306.8)
== END 2023-05-28 13:53 | disposition home or self-care (01) ==
LOC: LAB.N 13:52
PROVIDERS: ATTEND Physician Assistant Medical
DX: Z00.00 Encounter for general adult medical examination without abnormal findings (principal); R42 Dizziness and giddiness
CPT/HCPCS: 36415; 80048; 80061; 82728; 83721; 84443; 84702; 85025